=== PATIENT | male | born 1930 | race Caucasian/White ===

== ENCOUNTER 2017-10-06 08:33 | Emergency (ER) | payer OTHER, MEDICARE ==
[~2017-10-06 08:33] MED LIST: ACIDOPHILUS1 EACH PO; AMARYL1 MG PO; ASPIR 8181 MG PO; ASPIRIN EC81 M1 PO; CARISOPRODOL250 MG PO; CIPRO 500MG TA500 MG PO; ELIQUIS5 M1 PO; FLAG500 PO; FLAGYL250 M1 PO; FLAGYL500 MG PO; FLORASTOR250 M1 PO; GLIMEPIRIDE1 M1 PO; GLYBURIDE2.5 MG PO; GOLYTELY1 PDR PO; LASIX20 M1 PO; LEVSIN-SL0.125 MG SL; MIRALAX17 GM PO; MORPHINE SULFAT30 M3 PO; NEOMYCIN-POLYMY10 ML AD; OXYCODONE HCL E10 MG PO; OXYCODONE HCL E20 MG; OXYCODONE HCL20 M2 PO; PERCOCET 5-3251 EACH PO; POTASSIUM CHLO20 ME4 PO; PRILOSEC OTC20 MG PO; SENNA CON/DOCUS1 TAB PO; SIMVASTATIN20 M2 PO; SIMVASTATIN20 MG PO; SOMA250 M1 PO; SUPREP BOWEL P177 ML PO; ULTRAM50 M1 PO; VANCOCIN HCL125 MG PO; VANCOMYCIN HCL125 MG PO; VANCOMYCIN HCL5 G1 PO; ZOFRAN ODT4 M1 SL; ZOFRAN ODT4 MG PO; ZOFRAN4 M2 PO; ZOHYDRO ER30 M1 PO
[2017-10-06 08:39] VITALS: BP 142/78
--- NOTE | 2017-10-06 08:58 | ED SKIN/ALLERGY COMPLAINT ---
History of Present Illness General Chief Complaint: Skin Rash/ Abcess Stated Complaint: RASH WITH SWELLING TO RT HAND Source: patient, family Exam Limitations: no limitations Vital Signs & Intake/Output Vital Signs & Intake/Output Vital Signs Date Time Temp Pulse Resp B/P B/P Pulse O2 O2 Flow FiO2 Mean Ox Delivery Rate 10/06 0839 97.5 88 20 142/78 Allergies Coded Allergies: penicillin V (HIVES 11/27/16) metoclopramide (Severe, DIARRHEA 11/27/16) Reconcile Medications Aspirin (Ecotrin*) 81 MG TABLET.DR 1 TAB PO DAILY HEART/BLOOD (Reported) Carisoprodol (SOMA) 250 MG TABLET 1 TAB PO BID PAIN (Reported) Glimepiride 1 MG TABLET 1 TAB PO DAILY DM (Reported) Morphine Sulfate (Morphine Sulfate ER) 30 MG TABLET.ER 1 TAB PO BID PAIN ( Reported) Ondansetron HCl (Zofran) 4 MG TABLET 1 TAB PO Q6 PRN NAUSEA/VOMITING Oxycodone HCl (Oxycodone HCl ER) 10 MG TAB.ER.12H 1 TAB PO Q6 PAIN (Reported) Potassium Chloride 20 MEQ TABLET.ER 1 TAB PO DAILY Hypokalemia Saccharomyces Boulardii (Florastor) 250 MG CAPSULE 1 TAB PO BID DIARRHOEA Simvastatin (Simvastatin*) 20 MG TABLET 1 TAB PO QPM CHOLESTEROL (Reported) Triage Note: PER PT SWELLING TO RT HAND FROM POISON GEOVANNI. STARTED 2 WEEKS AGO BUT SWELLING SINCE YESTERDAY. SL SWELLING NOTED NO WARMTH Triage Nurses Notes Reviewed? yes HPI: Patient presents for evaluation of right hand swelling that began over the past day or 2. Patient states he has had a case of poison geovanni over the right dorsal wrist for the past 2 weeks that seems to be getting better. He was concerned that he might be developing a secondary skin infection given the swelling of the right hand. The patient denies any associated fever, cold symptoms or injury. The swelling has been constant, described as mild to moderate. Nothing seems to make the swelling improve. Past History Travel History Traveled to [place] past 21 day No Medical History Any Pertinent Medical History? 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 History of MRSA: No History of VRE: No History of CDIFF: Yes Influenza Vaccine: 01/15/17 Surgical History Surgical History: appendectomy, cataract removal (06/2014: cat OU), hernia repair-inguinal, prostatectomy, 05/2006: neurostimulator; mult back surgeries : TURP for BPH; later [facility] with RT/hormonal tx Psychosocial History Who do you live with Spouse Services at Home None What is your primary language Vincentian Tobacco Use: Never used Family History Family History, If Any: BROTHER (Pt unsure as to FHx, but denies FHx of GI Ca, GI disease, or inherited liver disease.). Relation not specified for: No pertinent family history Hx Contributory? No Review of Systems Review of Systems Constitutional: Reports: no symptoms. EENTM: Reports: no symptoms. Respiratory: Reports: no symptoms. Cardiovascular: Reports: no symptoms. GI: Reports: no symptoms. Genitourinary: Reports: no symptoms. Musculoskeletal: Reports: no symptoms. Skin: Reports: see HPI. Neurological/Psychological: Reports: no symptoms. Hematologic/Endocrine: Reports: no symptoms. Immunologic/Allergic: Reports: no symptoms. All Other Systems: Reviewed and Negative Physical Exam Physical Exam General Appearance: see below Comments: Gen.: Well-nourished, well-developed, no acute respiratory distress. Head: Normocephalic, atraumatic. Eyes: Normal inspection bilaterally Ears: Normal inspection bilaterally Nose: Normal inspection Throat/mouth : Moist mucosa Neck: Supple, full range of motion, no goiter Heart: Regular rate and rhythm Lungs: Quiet respirations Back: Normal range of motion Extremities: Right forearm: Pale erythema without vesicles ecchymoses fluctuance or drainage, right hand: Mild diffuse swelling of the dorsum without tenderness erythema or drainage. Neurologic: Cranial nerves grossly intact, speech is clear Skin: warm and dry Psychiatric: Calm, cooperative, no apparent delusions or hallucinations Progress Differential Diagnosis: abscess/cellulitis, allergic reaction, contact dermatitis, shingles, urticaria Plan of Care: See discharge instructions Departure Departure Disposition: HOME OR SELF CARE Condition: Stable Clinical Impression Primary Impression: Peripheral edema Secondary Impressions: Dermatitis due to plants, including poison geovanni, sumac, and oak Referrals: Rudi Hicks MD (PCP/Family) Additional Instructions: Elevate your right hand as discussed. Follow up with your primary care physician if the swelling does not resolve over the next 5-7 days. Return if any concerns or sudden worsening. Thank you for choosing the [facility] Emergency Department for your care. It was a pleasure to serve you today. David Shelton M.D. [facility] Departure Forms: Customer Survey General Discharge Information
== END 2017-10-06 09:19 ==
LOC: ERH 08:33
DX: R60.9 Edema, unspecified (principal); L25.5 Unspecified contact dermatitis due to plants, except food
CPT/HCPCS: 99282

== ENCOUNTER 2017-10-12 22:18 | Inpatient (IN) | payer OTHER, MEDICARE ==
[~2017-10-12] VITALS: Ht 167.6 cm; Wt 63.5 kg
[2017-10-12 22:42] LABS: ABSOLUTE BASOPHIL COUNT 0.1 /CUMM (0.0-0.2); ABSOLUTE EOSINOPHIL COUNT 0 /CUMM (0.0-0.7); ABSOLUTE GRANULOCYTE CT 9.7 /CUMM (1.4-6.5); ABSOLUTE LYMPH COUNT 3.5 /CUMM (1.2-3.4); BASOPHIL % 0.4 % (0.0-2.0); EOSINOPHIL % 0.3 % (0-5); GRANULOCYTE % 67.6 % (42.2-75.2); HEMATOCRIT 38.2 % (42-52); MEAN CORPUSCULAR HGB 32.4 PG (27.0-31.0); MEAN CORPUSCULAR HGB CONC 34.4 G/DL (33.0-37.0); MEAN CORPUSCULAR VOLUME 94.1 FL (80.0-94.0); PLATELET COUNT 101 /CUMM (130-400); RBC DISTRIBUTION WIDTH 14.5 % (11.5-14.5); RED BLOOD CELL CT 4.05 /CUMM (4.70-6.10); WHITE BLOOD CELL COUNT 14.3 /CUMM (4.8-10.8)
--- NOTE | 2017-10-13 01:36 | CT SCAN REPORT ---
EXAMINATION: CT ABDOMEN AND PELVIS WITH CONTRAST CLINICAL INFORMATION: Periumbilical pain. Chills, nausea. History of C. difficile colitis. COMPARISON: February 21, 2017. TECHNIQUE: Contiguous axial thin section helical images of the abdomen and pelvis were performed following the administration of 95 mL of intravenous Optiray 320. The data set was reformatted in the coronal and sagittal planes and reviewed on an independent workstation. DLP: 264 mGy-cm. FINDINGS: The visualized lung bases are clear. The visualized portions of the heart are unremarkable. There is a small hiatal hernia. The liver is of normal size and attenuation without focal lesions nor intrahepatic biliary ductal dilation. A normal gallbladder is identified. There is no wall thickening or discernible pericholecystic fluid. The spleen, pancreas, adrenal glands are unremarkable. Both kidneys are of normal size and attenuation without hydronephrosis or nephrolithiasis. There is stable bilateral renal cysts. Following the administration of IV contrast, prompt symmetric nephrograms are displayed. There is no abdominal free fluid. There is neither mesenteric nor retroperitoneal lymphadenopathy. There is diffuse wall thickening to the sigmoid colon. There is adjacent fat stranding. There are no fluid collections. Otherwise, unremarkable unopacified loops of small and large bowel are identified. There is no pelvic free fluid. The urinary bladder is unremarkable. There is neither pelvic nor inguinal lymphadenopathy. There is a large fat-containing left inguinal hernia. Bone windows: Neither sclerotic nor lytic bone lesions are identified. The osseous structures are stable. There is a stable defect to the left innominate bone. IMPRESSION: Diffuse sigmoid colon wall thickening indicative of colitis. No drainable fluid collections. Large fat-containing left inguinal hernia.
--- NOTE | 2017-10-13 01:41 | ED GI/GU/ABDOMINAL COMPLAINT ---
History of Present Illness General Chief Complaint: Abdominal Pain/Flank Pain Stated Complaint: AB PAIN +DIARHEA Source: patient, family, old records Exam Limitations: no limitations Vital Signs & Intake/Output Vital Signs & Intake/Output Vital Signs Date Time Temp Pulse Resp B/P B/P Pulse O2 O2 Flow FiO2 Mean Ox Delivery Rate 10/13 0053 99.1 103 20 159/86 95 Room Air 10/12 2228 99.9 105 20 133/79 95 Room Air ED Intake and Output 10/13 0000 10/12 1200 Intake Total Output Total Balance Patient 140 lb Weight Allergies Coded Allergies: penicillin V (HIVES 11/27/16) metoclopramide (Severe, DIARRHEA 11/27/16) Reconcile Medications Aspirin (Ecotrin*) 81 MG TABLET.DR 1 TAB PO DAILY HEART/BLOOD (Reported) Carisoprodol (SOMA) 250 MG TABLET 1 TAB PO BID PAIN (Reported) Glimepiride 1 MG TABLET 1 TAB PO DAILY DM (Reported) Morphine Sulfate (Morphine Sulfate ER) 30 MG TABLET.ER 1 TAB PO BID PAIN ( Reported) Ondansetron HCl (Zofran) 4 MG TABLET 1 TAB PO Q6 PRN NAUSEA/VOMITING Oxycodone HCl (Oxycodone HCl ER) 10 MG TAB.ER.12H 1 TAB PO Q6 PAIN (Reported) Potassium Chloride 20 MEQ TABLET.ER 1 TAB PO DAILY Hypokalemia Saccharomyces Boulardii (Florastor) 250 MG CAPSULE 1 TAB PO BID DIARRHOEA Simvastatin (Simvastatin*) 20 MG TABLET 1 TAB PO QPM CHOLESTEROL (Reported) Triage Note: PT FROM HOME WITH C/O DIARRHEA AND "PAINS IN MY STOMACH". PT REPORTS IT BEGAN 2 DAYS AGO WITH ABD PAIN AND TODAY THE DIARRHEA STARTED. PT DENIES ANY BLOOD IN STOOL. Triage Nurses Notes Reviewed? yes Onset: 2 days Duration: day(s):, constant, continues in ED Timing: recent history Quality/Severity: aching, moderate, severe Location: periumbilical Radiation: no radiation Activities at Onset: rest Prior Abdominal Problems: similar symptoms Past Sexual History: Unobtainable at this time Modifying Factors: Worsens With: eating, palpation. Associated Symptoms: abdominal pain, diarrhea, loss of appetite, neck pain HPI: 2 days prior to admission patient complains anorexia and nausea. 1 day prior to admission patient developed frequent loose watery stool and later moderate to severe periumbilical discomfort nonradiating similar to previous C. difficile colitis. He reports his temperature has been going up and down. He denies chills vomiting chest pain cough shortness of breath headache dysuria rash bleeding recent antibiotic use. Past History Travel History Traveled to [place] past 21 day No Medical History Any Pertinent Medical History? 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 History of MRSA: No History of VRE: No History of CDIFF: Yes Surgical History Surgical History: appendectomy, cataract removal (06/2014: cat OU), hernia repair-inguinal, prostatectomy, 05/2006: neurostimulator; mult back surgeries : TURP for BPH; later txd for prostate Ca at [facility] with RT/hormonal tx Psychosocial History Who do you live with Spouse Services at Home None What is your primary language Swazi Tobacco Use: Never used ETOH Use: denies use Illicit Drug Use: denies illicit drug use Family History Family History, If Any: BROTHER (Pt unsure as to FHx, but denies FHx of GI Ca, GI disease, or inherited liver disease.). Relation not specified for: No pertinent family history Hx Contributory? No Review of Systems Review of Systems Constitutional: Reports: no symptoms. EENTM: Reports: no symptoms. Respiratory: Reports: no symptoms. Cardiovascular: Reports: no symptoms. GI: Reports: see HPI, abdominal pain, diarrhea, nausea. Genitourinary: Reports: no symptoms. Musculoskeletal: Reports: no symptoms. Skin: Reports: no symptoms. Neurological/Psychological: Reports: no symptoms. Hematologic/Endocrine: Reports: no symptoms. Immunologic/Allergic: Reports: no symptoms. All Other Systems: Reviewed and Negative Physical Exam Physical Exam General Appearance: well developed/nourished, alert, awake, anxious, moderate distress Head: atraumatic, normal appearance Eyes: Bilateral: normal appearance, PERRL, EOMI, normal inspection. Ears, Nose, Throat, Mouth: hearing grossly normal, dry mucous membranes Neck: normal inspection, supple, full range of motion, normal alignment Respiratory: normal breath sounds, chest non-tender, no respiratory distress, quiet respiration, lungs clear Cardiovascular: regular rate/rhythm, normal peripheral pulses, norml femoral pulses equa Peripheral Pulses: 4+ carotid (R), 4+ carotid (L) Gastrointestinal: soft, no organomegaly, abnormal bowel sounds, tenderness (mild periumbilical) Male Genitals: normal genitalia Back: normal inspection, normal range of motion Extremities: normal range of motion, no ligament instability Neurologic/Psych: no motor/sensory deficits, awake, alert, oriented x 3, normal gait, normal mood/affect, spooler rubber strand II-XII nml as tested Skin: intact, normal color, warm/dry Core Measures ACS in differential dx? No Sepsis Present: No Sepsis Focused Exam Completed? No Progress Differential Diagnosis: biliary colic, diverticulitis, gastritis, pancreatitis Plan of Care: Orders Procedure Date/time Status Full Liquid Diet 10/13 B Active Weight 10/13 0406 Active Vital Signs 10/13 0406 Active Teach/Educate 10/13 0406 Active Pain Treatment and Response 10/13 0406 Active Nutritional Intake, Monitor 10/13 0406 Active Isolation 10/13 0406 Active Intake & Output 10/13 0406 Active Patient Care Conference 10/13 0406 Active Activity/Ambulation 10/13 0406 Active Hemoccult 10/13 0327 Active OXYGEN SETUP (GEN) 10/13 0318 Active Saline Lock 10/13 0318 Active Admit to inpatient 10/13 0318 Active Vital Signs 10/13 0318 Active Activity/Ambulation 10/13 0318 Active Code Status 10/13 0318 Active Precautions 10/13 0307 Active Patient Data 10/13 0235 Active STOOL: R/O YERSINIA 10/13 0215 Active STOOL:R/O VIBRIO 10/13 0215 Active CULTURE,STOOL 10/13 0215 Active C.DIFFICILE 10/13 0215 Active Intake & Output 10/13 0103 Active TROPONIN LEVEL 10/12 2231 Complete COMPREHENSIVE METABOLIC PANEL 10/12 2231 Complete CBC WITHOUT DIFFERENTIAL 10/12 223 Complete EKG 10/12 2220 Active Current Medications Sig/Karson Start time Last Medication Dose Stop Time Status Admin Metronidazole 500 MG ONCE ONE 10/13 0215 CAN (Flagyl) 10/13 0314 N/A 1 UNIT (No Carrier) Laboratory Tests 10/12/17 2235: Anion Gap 9, Estimated GFR > 60, BUN/Creatinine Ratio 12.9, Glucose 228 H, Calcium 8.8, Total Bilirubin 0.9, AST 21, ALT 32, Alkaline Phosphatase 48, Troponin I 0.03, Total Protein 6.0 L, Albumin 3.5, Globulin 2.5, Albumin/ Globulin Ratio 1.4, CBC w Diff NO MAN DIFF REQ, RBC 4.05 L, MCV 94.1 H, MCH 32.4 H, MCHC 34.4, RDW 14.5, MPV 7.0 L, Gran % 67.6, Lymphocytes % 24.5, Monocytes % 7.2, Eosinophils % 0.3, Basophils % 0.4, Absolute Granulocytes 9.7 H, Absolute Lymphocytes 3.5 H, Absolute Monocytes 1.0 H, Absolute Eosinophils 0, Absolute Basophils 0.1 Microbiology 10/14 327 STOOL: Clostridium difficile Toxin A & B - RECD 10/14 327 STOOL: Vibrio Culture - RECD 10/14 327 STOOL: Yersinia Culture - RECD 10/14 327 STOOL: Stool Culture - RECD Diagnostic Imaging: Viewed by Me: CT Scan. Discussed w/RAD: CT Scan. Radiology Impression: Diffuse sigmoid colon wall thickening indicative of colitis. No drainable fluid collections. Large fat-containing left inguinal hernia. Initial ED EKG: normal axis, normal intervals, normal p-waves, normal QRS complex, normal sinus rhythm, no ST T wave changes Prior EKG: unchanged Rhythm Strip: normal sinus rhythm Departure Departure Disposition: STILL A PATIENT Condition: Stable Clinical Impression Primary Impression: Colitis Secondary Impressions: History of Clostridium difficile colitis, Hyponatremia, Leukocytosis Referrals: Hicks Rudi KELLY (PCP/Family) Departure Forms: Customer Survey General Discharge Information Admission Note Spoke With: Daysi Coy MD Documentation of Exam: Documentation of any treatments & extenuating circumstances including Concerns Regarding Discharge (functional status, medication knowledge or non-compliance, living conditions, etc.) that warrant an admission rather than observation: IV hydration stool studies medication adjustment antibiotics for colitis GI evaluation advance diet continuing care discharge planning
--- NOTE | 2017-10-13 02:59 | History & Physical ---
Jessenia Pedersen MD 10/13/17 0258: General Information and HPI MD Statement: I have seen and personally examined LIONEL KING JR and documented this H& P. The patient is a 87 year old M who presented with a patient stated chief complaint of abdominal pain and bloody diarrhea Source of Information: patient, old records Exam Limitations: no limitations History of Present Illness: Patient is an 87-year-old male with a past medical history significant for hypertension, hyperlipidemia, chronic back pain secondary to spinal stenosis status post left abdominal wall nerve stimulator, history of C. difficile colitis, diabetes, history of DVT, prostate cancer status post TURP, radiation, hormonal therapy, appendectomy, that comes in for complaints of 2 days abdominal pain and 1 day of bloody diarrhea. The patient states that his abdominal pain is nonradiating and has been continuous with episodes of severe abdominal pain. He denies any nausea or vomiting. He states that he had a fever 2 days ago with diaphoresis and chills up to 102. The patient has had 4 episodes of diarrhea today, bloody, with a worse odor than normal. The patient states that after he has diarrhea, the pain lessens. He denies any black stools. The patient hasn't eaten for 2 days secondary to lack of appetite. The patient was last admitted in February for similar complaints. He cannot recall if he has had issues with diarrhea since that admission. He denies any recent antibiotic use, sick contacts, travel. 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 His PCP is Dr. Hicks. The patient denies any dysuria, headache, dizziness, chest pain, shortness of breath, cough. He notes chronic pain on the balls of his feet, unsure of the cause and has had no workup for that. The patient lives with his and is independent in his activities of daily living. He ambulates independently, walks about 2 miles a day. He denies alcohol, drugs, smoking. Allergies/Medications Allergies: Coded Allergies: penicillin V (HIVES 11/27/16) metoclopramide (Severe, DIARRHEA 11/27/16) Home Med list Aspirin (Ecotrin*) 81 MG TABLET.DR 1 TAB PO DAILY HEART/BLOOD (Reported) Carisoprodol (SOMA) 250 MG TABLET 1 TAB PO BID PAIN (Reported) Glimepiride 1 MG TABLET 1 TAB PO DAILY DM (Reported) Morphine Sulfate (Morphine Sulfate ER) 30 MG TABLET.ER 1 TAB PO BID PAIN ( Reported) Ondansetron HCl (Zofran) 4 MG TABLET 1 TAB PO Q6 PRN NAUSEA/VOMITING Oxycodone HCl (Oxycodone HCl ER) 10 MG TAB.ER.12H 1 TAB PO Q6 PAIN (Reported) Potassium Chloride 20 MEQ TABLET.ER 1 TAB PO DAILY Hypokalemia Saccharomyces Boulardii (Florastor) 250 MG CAPSULE 1 TAB PO BID DIARRHOEA Simvastatin (Simvastatin*) 20 MG TABLET 1 TAB PO QPM CHOLESTEROL (Reported) Compliance With Home Meds: GOOD Past History Travel History Traveled to [place] past 21 day No Medical History Neurological: torticollis EENT: cataracts Cardiovascular: hypertension, hyperlipidemia, IRBBB Respiratory: NONE Gastrointestinal: L ABD WALL STIMULATOR; 09/2013- colonoscopy- stricture at 15cm bx negative + C.DIFF Hx C.diff HH L femoral hernia Renal: L renal cyst Musculoskeletal: chronic back pain, disk herniation, degen joint disease, spinal stenosis, back pain with nerve stimulator implant Psychiatric: NONE Endocrine: NIDDM Blood Disorders: DVT, thrombocytopenia Cancer(s): prostate cancer (prev TURP; RT/hormonal tx) 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 Psychosocial History Who Do You Live With? spouse Services at Home: None Primary Language: Luxembourgish ETOH Use: denies use Illicit Drug Use: denies illicit drug use Living Will? no Power of African Studies Professor/HCP? no Functional Ability ADLs Independent: dressing, eating, toileting, bathing. Ambulation: independent IADLs Independent: shopping, housework, finances, food prep, telephone, transportation. Needs Assist: medication admin. Review of Systems Review of Systems Constitutional: Reports: chills, diaphoresis, fever. EENTM: Reports: no symptoms. Cardiovascular: Reports: no symptoms. Respiratory: Reports: no symptoms. GI: Reports: abdominal pain, bloating, diarrhea, bloody stool, changes in stool. Genitourinary: Reports: no symptoms. Musculoskeletal: Reports: back pain. Skin: Reports: no symptoms. Neurological/Psychological: Reports: no symptoms. Hematologic/Endocrine: Reports: no symptoms. Immunologic/Allergic: Reports: no symptoms. Exam & Diagnostic Data Last 24 Hrs of Vital Signs/I&O Vital Signs Date Time Temp Pulse Resp B/P B/P Pulse O2 O2 Flow FiO2 Mean Ox Delivery Rate 10/13 0053 99.1 103 20 159/86 95 Room Air 10/12 2228 99.9 105 20 133/79 95 Room Air Intake & Output 10/13 0800 10/13 0000 10/12 1600 Intake Total Output Total Balance Patient 140 lb Weight Physical Exam General Appearance Alert, Oriented X3, Cooperative, No Acute Distress Skin No Rashes, No Breakdown Skin Temp/Moisture Exam: Warm/Dry Sepsis Skin Exam (color): Normal for Ethnicity HEENT Atraumatic, PERRLA, EOMI, Mucous Membr. moist/pink Cardiovascular Regular Rate, Normal S1, Normal S2, No Murmurs Lungs Clear to Auscultation, Normal Air Movement Abdomen Normal Bowel Sounds, Soft, No Hepatospenomegaly, No Masses, patient has rebound tenderness throughout Neurological Normal Speech Extremities No Clubbing, No Cyanosis, Normal Pulses, No Tenderness/Swelling, 1+ pitting edema bilaterally Vascular Normal Pulses, Pulses Symmetrical Last 24 Hrs of Labs/Duy: Laboratory Tests 10/12/175: Anion Gap 9, Estimated GFR > 60, BUN/Creatinine Ratio 12.9, Glucose 228 H, Calcium 8.8, Total Bilirubin 0.9, AST 21, ALT 32, Alkaline Phosphatase 48, Troponin I 0.03, Total Protein 6.0 L, Albumin 3.5, Globulin 2.5, Albumin/ Globulin Ratio 1.4, CBC w Diff NO MAN DIFF REQ, RBC 4.05 L, MCV 94.1 H, MCH 32.4 H, MCHC 34.4, RDW 14.5, MPV 7.0 L, Gran % 67.6, Lymphocytes % 24.5, Monocytes % 7.2, Eosinophils % 0.3, Basophils % 0.4, Absolute Granulocytes 9.7 H, Absolute Lymphocytes 3.5 H, Absolute Monocytes 1.0 H, Absolute Eosinophils 0, Absolute Basophils 0.1 Microbiology 10/14 327 STOOL: Clostridium difficile Toxin A & B - RECD 10/14 327 STOOL: Vibrio Culture - RECD 10/14 327 STOOL: Yersinia Culture - RECD 10/14 327 STOOL: Stool Culture - RECD Assessment/Plan Assessment: Patient is an 87-year-old male with a past medical history significant for hypertension, hyperlipidemia, chronic back pain secondary to spinal stenosis status post left abdominal wall nerve stimulator, history of C. difficile colitis, diabetes, history of DVT, prostate cancer status post TURP, radiation, hormonal therapy, appendectomy, that comes in for complaints of 2 days abdominal pain and 1 day of bloody diarrhea. Patient was seen last in February for similar complaints and before that was seen in January 2016 for C. difficile. On his last stay with us his C. difficile was found to be PCR positive. Patient was seen by infectious disease and was initially put on IV metronidazole which was transitioned to by mouth prior to discharge for a total 14 days of antibiotics. He has no recent antibiotic use, no sick contacts, no travel, no new foods. Patient had flexible sigmoidoscopy in 2014 after he presented with signs of a large bowel obstruction and imaging suggesting a transition point in the region of the previously identified stricture. Findings of fecal impaction were found without an obvious stricture appreciated. In the ED, temperature 99.9, heart rate 105, respiratory rate 20, blood pressure 133/79, 95% oxygen saturation on room air. EKG showed a rate of 99 with multiple PACs and a QTC of 457, evidence of incomplete right bundle branch block. Labs showed WBC 14.3, hemoglobin 13 which is his baseline, platelets 101 which is his baseline, sodium 129, potassium 4.4, normal LFTs, calcium, troponins. CT of the abdomen showed colitis with no drainable fluid collection and a large fat-containing left inguinal hernia. In the ED he received vancomycin by mouth, 1 L fluids, Zofran, morphine 4 mg 1. 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 As stated previously, patient has not had any recent antibiotics or as recently admitted but recurrence is likely as patient has had this issue twice before. Patient has questionable hypertension but does not have coronary artery disease or any other type of peripheral vascular disease which would point to ischemic colitis. He has no established diagnosis of Crohn's disease or ulcerative colitis. Patient has allergy to penicillin and metoclopramide but has not taken these medications so allergic reaction colitis is unlikely as well. Patient had flexible sigmoidoscopy in 2014, no sigmoid or rectal lesions found. -Hyponatremia -Questionable history of hypertension, no record of current medications -Diabetes -Back pain with nerve stimulator -History prostate cancer status post TURP, radiation, hormonal therapy Plan -Admit patient to general medical floors for evaluation and treatment -The patient on vancomycin 125 mg every 6 by mouth -Monitor CBC for drop in hemoglobin as patient is bleeding rectally -Guaiac stool -Please place a consult with infectious disease in the morning -Place patient on full liquid diet with advance as tolerated -Follow up C. difficile toxin assay, vibrio and Yersinia, stool culture -Normal saline at a rate of 50 as patient does have lower extremity edema with no recent echocardiogram. -Follow up BEP for hyponatremia -Pain control -Please confirm medications in the morning as patient's had taken the medication list and patient does not recall his medications Full liquid diet DVT prophylaxis with just Alps Full code As Ranked By This Provider Problem List: 1. History of Clostridium difficile colitis 2. Colitis Core Measures/Misc (01/01) Acute Coronary Syndrome ACS Diagnosis: No Congestive Heart Failure Congestive Heart Failure Diagnosis No Cerebrovascular Accident CVA/TIA Diagnosis: No VTE (View Protocol) VTE Risk Factors Acute Medical Illness No Mechanical VTE Prophylaxis d/t N/A MechProphylax Ordered No VTE Pharm Prophylaxis d/t Medical Contraindication Sepsis (View protocol) Sepsis Present: No If YES complete Sepsis Event Note If YES complete Sepsis Event Note Екатерина Pringle 10/13/17 0344: Core Measures/Misc (01/01) Sepsis (View protocol) If YES complete Sepsis Event Note If YES complete Sepsis Event Note Resident Review Statement Resident Statement: 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 Patient states that 2 days ago, he developed a temperature of 102 at home, and experienced some chills. Then this morning, patient reports that he had profuse diarrhea. He reports to having 4 bowel movements today and states that his stools are more foul-smelling.. The color of his stool is reddish. Of note from his previous discharge summary, it appears that he had bloody diarrhea the last time as well. Patient was recently treated for C. difficile in February 2017. Patient reports of nausea but no vomiting. Fever/chills positive. Labs and vitals as above CT abdomen significant for colitis Assessment and plan Will admit the patient on general medicine floor, start by mouth Vanco 125 mg by mouth every 6 hours, given his recurrent C. difficile, patient might benefit from stool transplant, ID consult in a.m. Gentle IV hydration at 50 mL/h given his diarrhea. Patient also reported of low appetite, however will start him with full liquids for now. Patient has hyponatremia of 129, recheck sodium in morning. Will start patient on fingerstick and low-dose sliding scale. Will recheck CBC to monitor for leukocytosis in am. Patient has a platelet count of 101, will monitor closely. Patient does not have a medication list, and no pharmacy reclaim can be seen. Please confirm CMR in a.m. DVT prophylaxis Alps. Patient is full code. Daysi Coy 10/13/17 0443: Core Measures/Misc (01/01) Sepsis (View protocol) If YES complete Sepsis Event Note If YES complete Sepsis Event Note Attending MD Review Statement Attending Statement Attending MD Statement: examined this patient, discuss w/resident/PA/EMERGENCY ROOM DOCTOR, agreed w/resident/PA/EMERGENCY ROOM DOCTOR, reviewed EMR data (avail), reviewed images, amended to note Attending Assessment/Plan: CC: Abdominal pain and diarrhea PMH: DM, history of DVT, prostate cancer, thrombocytopenia, spinal stenosis and chronic back pain S/P nerve stimulator, HLD, history of C. difficile diarrhea Patient came to ER for 2 day history of abdominal pain, diffuse, nonradiating, mild relief with bowel movement otherwise no aggravating or relieving factor. He started to have diarrhea yesterday had 4-5 watery bowel movements. In color. He endorses fever, chills, decreased appetite. He denies any recent antibiotic use, no different food intake, no travels, no sick contacts other than the symptoms ROS unremarkable. Vitals: Temperature 99.9, pulse 105, RR 20, blood pressure 133/79, saturating 95 % on room air. On exam: A O 3, cooperative, no acute distress, neck supple, JVD normal, no lymphadenopathy, tongue dry and coated, no focal neurological deficit, trace leg edema, no obvious skin rashes or inflammation CVS: S1-S2, RRR. RS: Clear to auscultate bilaterally. Abdomen: Tender more so in left upper and lower quadrant , mild distention, bowel sounds decreased. CT abdomen and pelvis with IV contrast: Diffuse sigmoid colon wall thickening indicative of colitis. No drainable fluid collections. Large fat-containing left inguinal hernia. Assessment and plan 87-year-old male with extensive past medical history as mentioned above presented in ER for 2 day history of abdominal pain and one day history of diarrhea, red in color associated with fever and chills. CT confirms evidence of diffuse colitis in sigmoid colon. He has leukocytosis, hyponatremia, creatinine normal. On examination he appears dehydrated. He has history of recurrent C. difficile infections. This appears to be recurrence of C. difficile again, we'll start empirical treatment with vancomycin, await C. difficile stool. If he is not responding to treatment than other causes of colitis should be considered especially inflammatory given his recurrent symptoms. Last episode was in February 2017, confirmed with PCR. We will get ID involved. Consider outpatient GI follow-up, fecal transplant + Diarrhea suspected C. difficile + Dehydration + Hyponatremia probably secondary to dehydration + History of DM, history of DVT, prostate cancer, thrombocytopenia, spinal stenosis and chronic back pain S/P nerve stimulator, HLD, history of C. difficile diarrhea - Admit to general medicine - Continue IV fluids normal saline - Check urine osmolality, serum osmolality - Continue by mouth vancomycin - Obtain C. difficile stool - Stool cultures - Monitor H&H - Guaiac stool - ID consult - Pain control - Avoid antimotility agent - Sliding scale insulin - Hold Lasix - Confirmed all his medications before starting
--- NOTE | 2017-10-13 04:45 | Admission Certification ---
Admission Certification Certification Statement - As attending physician, I certify that at the time of - admission, based on clinical presentation, severity of - symptoms, need for further diagnostic testing and - therapeutic interventions, and risk of adverse outcomes - without in-hospital treatment, in my clinical assessment, - this patient requires an acute hospital stay for a minimum - of two nights or longer. I have also considered psychsocial - factors such as support system, advanced age, financial - issues, cognitive issues, and failed out-patient treatments, - past re-admission history, safety of patient, and lack of - compliance as applicable. Specific rationale supporting this admission is: Diarrhea, suspected C. difficile, dehydration
[2017-10-13 06:15] VITALS: BP 146/70
[2017-10-13 08:49] LABS: ABSOLUTE BASOPHIL COUNT 0.1 /CUMM (0.0-0.2); ABSOLUTE EOSINOPHIL COUNT 0 /CUMM (0.0-0.7); ABSOLUTE GRANULOCYTE CT 11.2 /CUMM (1.4-6.5); ABSOLUTE LYMPH COUNT 2.7 /CUMM (1.2-3.4); ABSOLUTE MONOCYTE COUNT 0.9 /CUMM (0.10-0.60); BASOPHIL % 0.5 % (0.0-2.0); EOSINOPHIL % 0.1 % (0-5); GRANULOCYTE % 75.5 % (42.2-75.2); MEAN CORPUSCULAR HGB CONC 33.9 G/DL (33.0-37.0); MEAN CORPUSCULAR VOLUME 94.5 FL (80.0-94.0); MEAN PLATELET VOLUME 7.3 FL (7.4-10.4); RBC DISTRIBUTION WIDTH 14.4 % (11.5-14.5); RED BLOOD CELL CT 4.02 /CUMM (4.70-6.10); WHITE BLOOD CELL COUNT 14.8 /CUMM (4.8-10.8)
--- NOTE | 2017-10-13 10:23 | PN- Att Addend ---
Attending Addendum Attending Brief Note 87-year-old male past medical history of diabetes, prostate CA, chronic thrombocytopenia and previous C. difficile colitis. His last documented episode with us is February 2017 where the PCR was positive and he was treated. He is here with complaints of abdominal discomfort, diarrhea, had leukocytosis with a white count of 14,000 and a low-grade temp of 99.9. His CT showed sigmoid colitis and he is being empirically treated for C. difficile with a stool C. difficile pending. At this point will continue the oral Vanco, will call for a formal ID consult as the question is if this is his second episode does he need the pulse tapering dose of Vanco. Will advance the diet, if he is tolerating it well stop the fluids. And will follow-up.
[2017-10-13 10:41] LABS: PLATELET COUNT 100 /CUMM (130-400)
--- NOTE | 2017-10-13 12:41 | Cons- Infect Disease ---
General Information and HPI Consulting Request Date of Consult: 10/13/17 Requested By: Tam KELLY,Claire Reason for Consult: Rule out C. 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 difficile, treated 19 months prior to admission with a tapering course of Vancomycin, last hospitalized 7 months prior to admission with a recurrent episode, in the absence of antibiotics, with a negative toxin test but a positive PCR, treated with a 2 week course of Flagyl with resolution of his diarrhea, admitted early this morning after presenting to the emergency room with 2 days of abdominal pain and 1 day of diarrhea with nausea and anorexia. On admission he was afebrile. Laboratory data revealed a white blood cell count of 14,000, platelets 101,000, BUN/creatinine 9 and 0.7, sodium 129, with normal liver enzymes. CT the abdomen and pelvis revealed diffuse sigmoid colon wall thickening, indicative of colitis. He was begun on p.o. Vancomycin. He has remained afebrile but has continued to have diarrhea and abdominal pain overnight and this am. He denies any recent antibiotic use. Allergies/Medications Allergies: Coded Allergies: penicillin V (HIVES 11/27/16) metoclopramide (Severe, DIARRHEA 11/27/16) Home Med List: Aspirin (Ecotrin*) 81 MG TABLET.DR 1 TAB PO DAILY HEART/BLOOD (Reported) Carisoprodol (SOMA) 250 MG TABLET 1 TAB PO BID PAIN (Reported) Glimepiride 1 MG TABLET 1 TAB PO DAILY DM (Reported) Morphine Sulfate (Morphine Sulfate ER) 30 MG TABLET.ER 1 TAB PO BID PAIN ( Reported) Ondansetron HCl (Zofran) 4 MG TABLET 1 TAB PO Q6 PRN NAUSEA/VOMITING Oxycodone HCl (Oxycodone HCl ER) 10 MG TAB.ER.12H 1 TAB PO Q6 PAIN (Reported) Potassium Chloride 20 MEQ TABLET.ER 1 TAB PO DAILY Hypokalemia Saccharomyces Boulardii (Florastor) 250 MG CAPSULE 1 TAB PO BID DIARRHOEA Simvastatin (Simvastatin*) 20 MG TABLET 1 TAB PO QPM CHOLESTEROL (Reported) Past History Travel History Traveled to [place] past 21 day No Medical History Blood Transfusion Hx: No Neurological: torticollis EENT: cataracts Cardiovascular: hypertension, hyperlipidemia, IRBBB Respiratory: NONE Gastrointestinal: hiatal hernia, 09/2013- colonoscopy- stricture at 15cm bx negative + C.DIFF L femoral hernia Renal: L renal cyst Musculoskeletal: chronic back pain, disk herniation, degen joint disease, spinal stenosis Psychiatric: NONE Endocrine: NIDDM Blood Disorders: DVT, thrombocytopenia Cancer(s): prostate cancer (RT/hormonal [place]) 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 Relation not specified for: No pertinent family history Psychosocial History Where Do You Live? Home Who Do You Live With? spouse Services at Home: None Primary Language: Tristanian Smoking Status: Never Smoked ETOH Use: denies use Illicit Drug Use: denies illicit drug use Living Will? no Power of Hog Buyer/HCP? no Functional Ability ADLs Independent: dressing, eating, toileting, bathing. Ambulation: independent IADLs Independent: shopping, housework, finances, food prep, telephone, transportation. Needs Assist: medication admin. Review of Systems Review of Systems All Other Systems: Reviewed and Negative Exam & Diagnostic Data Last 24 Hrs of Vital Signs/I&O Vital Signs Date Time Temp Pulse Resp B/P B/P Pulse O2 O2 Flow FiO2 Mean Ox Delivery Rate 10/13 0615 98.5 88 20 146/70 95 Room Air 10/13 0053 99.1 103 20 159/86 95 Room Air 10/12 2228 99.9 105 20 133/79 95 Room Air Intake & Output 10/13 1600 10/13 0800 10/13 0000 Intake Total Output Total Balance Patient 140 lb 140 lb Weight Weight Reported by Patient Measurement Method Physical Exam Other Physical Findings: He is awake and alert, hard of hearing, but in no acute distress. He is afebrile. Skin reveals no rash. HEENT exam is negative. Neck is supple with no adenopathy. Lungs are clear. Heart regular rhythm with no murmur. Abdomen is mildly distended, tender to palpation, particularly in the periumbilical area , with no guarding or rebound, with positive bowel sounds; neurostimulator pocket in the left lower quadrant with no overlying inflammation. Back no CVA tenderness. Extremities no cyanosis, clubbing or edema. Neuro is without focality. Last 24 Hours of Lab Results: Laboratory Tests 10/13 10/12 0707 2235 Chemistry Sodium (137 - 145 mmol/L) 131 L 129 L Potassium (3.5 - 5.1 mmol/L) 3.8 4.4 Chloride (98 - 107 mmol/L) 94 L 91 L Carbon Dioxide (22 - 30 mmol/L) 25 29 Anion Gap (5 - 16) 12 9 BUN (9 - 20 mg/dL) 8 L 9 Creatinine (0.7 - 1.2 mg/dL) 0.6 L 0.7 Estimated GFR (>60 ml/min) > 60 > 60 BUN/Creatinine Ratio (7 - 25 %) 13.3 12.9 Glucose (65 - 99 mg/dL) 228 H Serum Osmolality (285 - 295 MOSM/KG) 277 L Calcium (8.4 - 10.2 mg/dL) 8.8 Total Bilirubin (0.2 - 1.3 mg/dL) 0.9 AST (17 - 59 U/L) 21 ALT (21 - 72 U/L) 32 Alkaline Phosphatase (< 127 U/L) 48 Troponin I (<0.11 ng/ml) 0.03 Total Protein (6.3 - 8.2 g/dL) 6.0 L Albumin (3.5 - 5.0 g/dL) 3.5 Globulin (1.9 - 4.2 gm/dL) 2.5 Albumin/Globulin Ratio (1.1 - 2.2 %) 1.4 Hematology CBC w Diff MAN DIFF ORDERED NO MAN DIFF REQ WBC (4.8 - 10.8 /CUMM) 14.8 H 14.3 H RBC (4.70 - 6.10 /CUMM) 4.02 L 4.05 L Hgb (14.0 - 18.0 G/DL) 12.9 L 13.1 L Hct (42 - 52 %) 38.0 L 38.2 L MCV (80.0 - 94.0 FL) 94.5 H 94.1 H MCH (27.0 - 31.0 PG) 32.0 H 32.4 H MCHC (33.0 - 37.0 G/DL) 33.9 34.4 RDW (11.5 - 14.5 %) 14.4 14.5 Plt Count (130 - 400 /CUMM) 100 L 101 L MPV (7.4 - 10.4 FL) 7.3 L 7.0 L Gran % (42.2 - 75.2 %) 75.5 H 67.6 Lymphocytes % (20.5 - 51.1 %) 17.9 L 24.5 Monocytes % (1.7 - 9.3 %) 6.0 7.2 Eosinophils % (0 - 5 %) 0.1 0.3 Basophils % (0.0 - 2.0 %) 0.5 0.4 Absolute Granulocytes (1.4 - 6.5 /CUMM) 11.2 H 9.7 H Segmented Neutrophils (42.2 - 75.2 %) 70 Band Neutrophils (0.0 - 5.0 %) 9 H Absolute Lymphocytes (1.2 - 3.4 /CUMM) 2.7 3.5 H Lymphocytes (20.5 - 51.1 %) 16 L Monocytes (1.7 - 9.3 %) 5 Absolute Monocytes (0.10 - 0.60 /CUMM) 0.9 H 1.0 H Absolute Eosinophils (0.0 - 0.7 /CUMM) 0 0 Absolute Basophils (0.0 - 0.2 /CUMM) 0.1 0.1 Normocytic RBCs VERIFIED Normochromic RBCs VERIFIED Last 24 Hours of Duy Results: Blood culture 1 October 13 pending Stool C. difficile and culture October 13 pending Diagnostic Data Recent Imaging Findings: CT of the abdomen and pelvis October 13 reveals diffuse sigmoid colon wall thickening indicative of colitis Assessment/Plan Assessment/Plan Impression: This is an 87-year-old man with a history of chronic abdominal pain in the past and recurrent C. difficile, not always associated with antibiotics, last treated 7 months prior to admission, at which time his C. difficile toxin was negative but his PCR was positive, admitted early this morning with 2 days of abdominal pain and 1 day of diarrhea with nausea and anorexia, found to be afebrile with a leukocytosis and with a CT of the abdomen and pelvis revealing diffuse sigmoid colon wall thickening, indicative of colitis. His clinical picture is consistent with C. difficile colitis. His white blood cell count is close to 15,000, suggesting this is a severe presentation. He does not report any recent antibiotic use, but this should be verified. Of interest his previous episodes have not always been associated with antibiotics, raising concern in the past for an underlying process, with a sigmoidoscopy performed nearly 3 years prior to admission negative. Of note several of his episodes of C. difficile have been diagnosed with PCR as the toxin test was negative, likely secondary to its lower sensitivity. Other possible causes of colitis, including ischemic colitis, other infectious agents and inflammatory bowel disease, will need to be considered if his C. difficile toxin and PCR are negative. Suggestion: 1. Obtain history from his primary care physician regarding any recent antibiotic use 2. Follow-up stool C. difficile toxin test 3. Stool for C. difficile PCR if the toxin test is negative 4. Evaluation for other causes of colitis, as noted above, if both the toxin test and PCR are negative 5. Continue Vancomycin 125 mg p.o. every 6 hours pending above Consult Acknowledgment - Thank you for your consult request.
[2017-10-13] MEDS ORDERED: OXYCODONE HCL10 M2 PO (13:11)
[2017-10-13] MEDS ORDERED: SOMA250 M1 PO (13:18)
[2017-10-13 15:10] VITALS: BP 130/70
[2017-10-13] MEDS ORDERED: VANCOMYCIN HCL5 G1 PO (15:26)
--- NOTE | 2017-10-13 16:58 | Discharge Summary ---
Hospital Course Allergies: Coded Allergies: penicillin V (HIVES 11/27/16) metoclopramide (Severe, DIARRHEA 11/27/16) Discharge Instructions Medications at Discharge Discharge Medications: Continue taking these medications: Aspirin (Ecotrin*) 81 MG TABLET.DR 1 Tablet ORAL DAILY Comments: NOT GIVEN IN HOSPITAL Simvastatin (Simvastatin*) 20 MG TABLET 1 Tablet ORAL Every night Qty = 30 Comments: NOT GIVEN IN HOSPITAL Glimepiride (Glimepiride) 1 MG TABLET 1 Tablet ORAL DAILY Qty = 30 Comments: NOT GIVEN IN HOSPITAL Saccharomyces Boulardii (Florastor) 250 MG CAPSULE 1 Tablet ORAL TWICE DAILY Qty = 20 Comments: NOT GIVEN IN HOSPITAL Morphine Sulfate (Morphine Sulfate ER) 30 MG TABLET.ER 1 Tablet ORAL TWICE DAILY Ondansetron HCl (Zofran) 4 MG TABLET 1 Tablet ORAL EVERY SIX HOURS as needed for NAUSEA/VOMITING Qty = 15 Oxycodone HCl (Oxycodone HCl) 10 MG TABLET 1 Tablet ORAL Q6H as needed for PAIN Qty = 30 Carisoprodol (SOMA) 250 MG TABLET 1 Tablet ORAL THREE TIMES DAILY Qty = 90 Start taking the following new medications: Vancomycin HCl (Vancomycin HCl) 900 MCG/MG (NOT LESS THAN, LONG TERM) POWDER 125 Milligram ORAL Q6H Qty = 28 No Refills Instructions: TOTAL TEN DAY COURSE
[2017-10-13 22:00] VITALS: BP 114/70
[2017-10-14 06:17] VITALS: BP 120/68
--- NOTE | 2017-10-14 08:18 | PN- Att Addend ---
Attending Addendum Attending Brief Note Patient seen and examined. He is doing okay. He had only 1 bowel movement overnight and as per the nurse it was semi-formed. He hasn't gotten out of bed since he's come here. On exam his blood pressure is 120/68, pulse is 83, breathing at 16-18 and MAXIMUM TEMPERATURE of 98.2. Lungs are clear to auscultation bilaterally, heart is S1-S2 regular, abdomen is soft and mild periumbilical tenderness no rebound or guarding. He has no edema. He has a neurostimulator in his abdomen and the site overlying is clean. He is extremely hard of hearing. His labs are pending. This is an 87-year-old male with a past medical history of prostate CA and previous C. difficile was here with acute C. difficile colitis as evidenced by colitis on the CT, diarrhea and an elevated white count with a positive stool for C. difficile toxin. Appreciate ID evaluation and we have him on oral vancomycin. Because of the white count and the colitis we are considering this a fairly severe episode. Put in a PT eval for today and will follow the number of bowel movements closely.
[2017-10-14 08:58] LABS: ABSOLUTE BASOPHIL COUNT 0 /CUMM (0.0-0.2); ABSOLUTE EOSINOPHIL COUNT 0 /CUMM (0.0-0.7); ABSOLUTE GRANULOCYTE CT 6.8 /CUMM (1.4-6.5); ABSOLUTE LYMPH COUNT 2.2 /CUMM (1.2-3.4); ABSOLUTE MONOCYTE COUNT 0.6 /CUMM (0.10-0.60); BASOPHIL % 0.3 % (0.0-2.0); EOSINOPHIL % 0.5 % (0-5); GRANULOCYTE % 70.3 % (42.2-75.2); HEMATOCRIT 33.3 % (42-52); MEAN CORPUSCULAR HGB 32.4 PG (27.0-31.0); MEAN CORPUSCULAR HGB CONC 34.4 G/DL (33.0-37.0); MEAN CORPUSCULAR VOLUME 94.2 FL (80.0-94.0); MEAN PLATELET VOLUME 7.4 FL (7.4-10.4); RED BLOOD CELL CT 3.54 /CUMM (4.70-6.10); WHITE BLOOD CELL COUNT 9.7 /CUMM (4.8-10.8)
--- NOTE | 2017-10-14 09:32 | PN- Housestaff ---
Subjective Follow-up For: c diff colitis Subjective: I have seen and examined the patient today morning states that he has going in and out of the bathroom last night, otherwise no new complaints. Review of Systems Constitutional: Reports: see HPI. Objective Last 24 Hrs of Vital Signs/I&O Vital Signs Date Time Temp Pulse Resp B/P B/P Pulse O2 O2 Flow FiO2 Mean Ox Delivery Rate 10/14 06 98.2 83 18 120/68 96 Room Air 10/13 2200 98.9 85 18 114/70 92 10/13 1510 98.6 94 20 130/70 96 Intake & Output 10/14 1600 10/14 0800 10/14 0000 Intake Total 400 400 Output Total Balance 400 400 Intake, IV 100 200 Intake, Oral 300 200 Physical Exam General Appearance: Alert, Oriented X3, Cooperative HEENT: Atraumatic, PERRLA, EOMI Neck: Supple, No JVD Cardiovascular: Normal S1, Normal S2, No Murmurs Lungs: Clear to Auscultation, Normal Air Movement Abdomen: Normal Bowel Sounds, Soft, No Tenderness Neurological: Normal Speech, Strength at 5/5 X4 Ext, Normal Tone, Sensation Intact Extremities: No Clubbing, No Cyanosis, No Edema, Normal Pulses Current Medications: Current Medications Sig/Karson Start time Last Medication Dose Route Stop Time Status Admin Acetaminophen 650 MG Q8P PRN 10/13 0500 AC 10/13 PO 0526 Aspirin Buffered 81 MG DAILY 10/14 0900 AC 10/14 PO 0923 Atorvastatin Calcium 10 MG 1700 10/13 1700 AC 10/13 PO 1739 Carisoprodol 350 MG BID 10/13 1400 AC 10/14 PO 0924 Insulin Aspart 0 TIDAC 10/13 0800 AC 10/14 SC 1214 Lactobacillus 1 CAP DAILY 10/14 0900 AC 10/14 Acidophilus PO 0923 Morphine Sulfate 30 MG BID 10/13 2100 AC 10/14 PO 0924 Morphine Sulfate 2 MG ONCE ONE 10/13 1715 DC 10/13 IV 10/13 1716 1740 Ondansetron HCl 4 MG ONCE ONE 10/13 2330 DC 10/13 IV 10/13 2331 2338 Ondansetron HCl 2 MG ONCE ONE 10/13 1800 DC 10/13 IV 10/13 1801 1857 Oxycodone HCl 5 MG Q6 PRN 10/13 1330 AC 10/14 PO 1433 Sodium Chloride 1,000 ML Q20H 10/13 0500 DC 10/13 IV 10/14 0059 0526 Vancomycin HCl 125 MG Q6H 10/13 0830 AC 10/14 PO 1429 Last 24 Hrs of Lab/Duy Results Last 24 Hrs of Labs/Mics: Laboratory Tests 10/14/17 0720: Anion Gap 9, Estimated GFR > 60, BUN/Creatinine Ratio 14.0, CBC w Diff NO MAN DIFF REQ, RBC 3.54 L, MCV 94.2 H, MCH 32.4 H, MCHC 34.4, RDW 14.0, MPV 7.4, Gran % 70.3, Lymphocytes % 22.9, Monocytes % 6.0, Eosinophils % 0.5, Basophils % 0.3, Absolute Granulocytes 6.8 H, Absolute Lymphocytes 2.2, Absolute Monocytes 0.6, Absolute Eosinophils 0, Absolute Basophils 0 10/13/17 1705: Anion Gap 7, Estimated GFR > 60, BUN/Creatinine Ratio 15.0 Lines/Diet/Fluids Restraints: none Assessment/Plan Assessment: This is a 87-year-old male with past medical history of hypertension, hyperlipidemia, chronic back pain secondary to spinal stenosis status post left abdominal wall no stimulator, history of C. difficile colitis, diabetes, history of DVT, prostate cancer status post TURP, radiation, hormonal therapy, appendectomy, that comes in for complaints of 2 days of abdominal pain and 1 day of bloody diarrhea, was last treated for C. difficile colitis with PCR positive in February 2017, was found to be C. difficile positive this admission and obese. Problem list. Problem #1 C. difficile colitis. Problem #2 dehydration. Problem #3 hyponatremia. Problem #4 history of diabetes mellitus. Problem #5 history of DVT. Problem #6 history of prostate cancer. Problem #7 history of thrombocytopenia. Problem #8 history of hyperlipidemia. PRoblem #9 History of spinal stenosis/chronic back pain. Plan * Continue p.o. vancomycin 125 mg for a total of 10 days. * Continue aspirin. * Continue MS Contin which is his home medication. * On regular diet,, will continue to monitor if he tolerates diet fine. * Plenty of hydration by mouth. * Because of C. difficile colitis is unknown, no recent use of antibiotics, no history of PPI usage, unsure the reason for his recurrent colitis. * Continue to follow white count. * Discharge tomorrow if no more episodes of diarrhea. * ct probiotic * PT Evaluation today. Full code. Regular diet. DVT prophylaxis. Problem List: 1. Colitis 2. History of Clostridium difficile colitis 3. C. difficile colitis Pain Ratin Pain Location: abdomen Pain Goal: Remain pain free Pain Plan: current Tomorrow's Labs & Rationales: ..
[2017-10-14 11:35] LABS: PLATELET COUNT 91 /CUMM (130-400)
--- NOTE | 2017-10-14 12:48 | PN- Infect Dx ---
Subjective Subjective: This patient is an 87-year-old man with a history of recurrent C. difficile, treated 19 months prior to admission with a tapering course of Vancomycin, last hospitalized 7 months prior to admission with a recurrent episode, in the absence of antibiotics, with a negative toxin test but a positive PCR, treated with a 2 week course of Flagyl with resolution of his diarrhea, admitted with 2 days of abdominal pain and 1 day of diarrhea with nausea and anorexia. C. difficile toxin is positive. The patient states that overnight he was up every half hour with diarrhea. This morning it is much improved to at least every 2 hours. Review of Systems Comments: 12 point review of systems complete with no other positive findings Objective Last 24 Hrs of Vital Signs/I&O Vital Signs Date Time Temp Pulse Resp B/P B/P Pulse O2 O2 Flow FiO2 Mean Ox Delivery Rate 10/14 0800 96 Room Air 10/14 0617 98.2 83 18 120/68 96 Room Air 10/13 2200 98.9 85 18 114/70 92 10/13 1510 98.6 94 20 130/70 96 Intake & Output 10/14 1600 10/14 0800 10/14 0000 Intake Total 400 400 Output Total Balance 400 400 Intake, IV 100 200 Intake, Oral 300 200 Physical Exam Other Physical Findings: Awake alert oriented 3 Pupils equal and reactive to light and accommodation Neck supple no JVD no lymphadenopathy Lungs clear to auscultation Heart regular rate and rhythm Abdomen soft nontender hyperactive bowel sounds No edema or rash Results Last 24 Hours of Lab Results: Laboratory Tests 10/14 10/13 0720 1705 Chemistry Sodium (137 - 145 mmol/L) 131 L 133 L Potassium (3.5 - 5.1 mmol/L) 3.8 3.5 Chloride (98 - 107 mmol/L) 98 104 Carbon Dioxide (22 - 30 mmol/L) 25 21 L Anion Gap (5 - 16) 9 7 BUN (9 - 20 mg/dL) 7 L 6 L Creatinine (0.7 - 1.2 mg/dL) 0.5 L 0.4 L Estimated GFR (>60 ml/min) > 60 > 60 BUN/Creatinine Ratio (7 - 25 %) 14.0 15.0 Hematology CBC w Diff NO MAN DIFF REQ WBC (4.8 - 10.8 /CUMM) 9.7 RBC (4.70 - 6.10 /CUMM) 3.54 L Hgb (14.0 - 18.0 G/DL) 11.5 L Hct (42 - 52 %) 33.3 L MCV (80.0 - 94.0 FL) 94.2 H MCH (27.0 - 31.0 PG) 32.4 H MCHC (33.0 - 37.0 G/DL) 34.4 RDW (11.5 - 14.5 %) 14.0 Plt Count (130 - 400 /CUMM) 91 L MPV (7.4 - 10.4 FL) 7.4 Gran % (42.2 - 75.2 %) 70.3 Lymphocytes % (20.5 - 51.1 %) 22.9 Monocytes % (1.7 - 9.3 %) 6.0 Eosinophils % (0 - 5 %) 0.5 Basophils % (0.0 - 2.0 %) 0.3 Absolute Granulocytes (1.4 - 6.5 /CUMM) 6.8 H Absolute Lymphocytes (1.2 - 3.4 /CUMM) 2.2 Absolute Monocytes (0.10 - 0.60 /CUMM) 0.6 Absolute Eosinophils (0.0 - 0.7 /CUMM) 0 Absolute Basophils (0.0 - 0.2 /CUMM) 0 Last 24 Hours of Duy Results: Microbiology Date/Time Procedure - Status Source Growth 10/13 1225 Blood Culture - RES BLOOD 10/13 0715 Blood Culture - RES BLOOD 10/13 0328 Clostridium difficile Toxin A & B - RES STOOL CLOSTRIDIUM DIFFICILE 10/13 0328 Vibrio Culture - RES STOOL 10/13 0328 Yersinia Culture - RES STOOL 10/13 0328 Stool Culture - RES STOOL Recent Imaging Studies: No recent studies Assessment/Plan ID Impression: This patient is an 87-year-old man with a history of recurrent C. difficile. Currently afebrile with a normal white blood cell count. C. difficile confirmed and appears to have responded to the vancomycin Suggestion: 1. Continue Vancomycin 125 mg p.o. every 6 hours 2. Follow white blood cell count 3. Monitor duration and frequency of diarrhea.
[2017-10-14 14:24] VITALS: BP 128/56
[2017-10-14 21:39] VITALS: BP 130/70
[2017-10-15 06:20] VITALS: BP 138/76
--- NOTE | 2017-10-15 08:15 | PN- Housestaff ---
See Addendum Subjective Follow-up For: C. Diff Colitis Subjective: Pt seen and examined with family at bedside. Overnight pt had severe pain which required morphine 2mg IV. Was then nauseous and recieved Zofran. Pt states that he has had ~4 episodes of bloody diarrhea at night into the morning. States he had left it in the toilet to collect, where upon inspection there was no diarrhea noted. Complains of LLQ abdominal pain, denies other complaints. States he has not vomited recently, denies any nausea. States he has eaten a small amount of his food although he does not feel hungry. Denies fevers/chills/night sweats/chest pain. Afebrile overnight. No other acute events. Review of Systems Constitutional: Reports: see HPI. Objective Last 24 Hrs of Vital Signs/I&O Vital Signs Date Time Temp Pulse Resp B/P B/P Pulse O2 O2 Flow FiO2 Mean Ox Delivery Rate 10/16 619 98.9 77 16 138/76 96 Room Air 10/14 2139 98.9 80 18 130/70 97 10/14 1424 97.8 84 20 128/56 96 Intake & Output 10/15 1600 10/15 0800 10/15 0000 Intake Total 200 300 Output Total Balance 200 300 Intake, Oral 200 300 Physical Exam General Appearance: Alert, Cooperative, No Acute Distress Skin: No Rashes HEENT: PERRLA, EOMI Cardiovascular: Regular Rate, Normal S1, Normal S2 Lungs: Clear to Auscultation, Normal Air Movement Abdomen: tenderness LLQ Extremities: No Cyanosis, No Edema Current Medications: Current Medications Sig/Karson Start time Last Medication Dose Route Stop Time Status Admin Acetaminophen 650 MG .STK-MED ONE 10/143 DC PO 10/14 230 Acetaminophen 650 MG Q8P PRN 10/13 0500 AC 10/14 PO 2305 Aspirin Buffered 81 MG DAILY 10/14 0900 AC 10/15 PO 0800 Atorvastatin Calcium 10 MG 1700 10/13 1700 AC 10/14 PO 1653 Carisoprodol 350 MG BID 10/13 1400 AC 10/15 PO 0801 Insulin Aspart 0 TIDAC 10/13 0800 AC 10/15 SC 0801 Lactobacillus 1 CAP DAILY 10/14 0900 AC 10/15 Acidophilus PO 0800 Morphine Sulfate 4 MG .STK-MED ONE 10/15 0118 DC IM 10/15 0119 Morphine Sulfate 2 MG ONCE ONE 10/15 0115 DC 10/15 IV 10/15 0116 0120 Morphine Sulfate 30 MG BID 10/13 2100 AC 10/15 PO 0802 Ondansetron HCl 2 MG ONCE ONE 10/15 0415 DC 10/15 IV 10/15 0416 0425 Oxycodone HCl 10 MG Q6 PRN 10/15 0927 AC PO Oxycodone HCl 5 MG Q6 PRN 10/13 1330 DC 10/14 PO 2115 Vancomycin HCl 125 MG Q6H 10/13 0830 AC 10/15 PO 0801 Last 24 Hrs of Lab/Duy Results Last 24 Hrs of Labs/Mics: Laboratory Tests 10/15/17 1038: Anion Gap 10, Estimated GFR > 60, BUN/Creatinine Ratio 14.0 Assessment/Plan Assessment: 87-year-old male with past medical history of C. difficile colitis last treated in February 2017, HTN, HLD chronic back pain secondary to spinal stenosis status post left abdominal wall nerve stimulator, DM, history of DVT, prostate cancer status post TURP, radiation, hormonal therapy, appendectomy, that comes in for complaints of 2 days of abdominal pain and 1 day of bloody diarrhea, admitted for C. Difficile colitis. C. Diff Colitis: -Positive for C. Diff toxin A on 10/13 -Continue PO Vanco 125mg q6 -WBC normalized (14.8 --> 9.7 today) -Pain resolving although still present, will restart MS contin and increase dose of oxycodone. -Will monitor pts complaint of bloody stools. Currently have no evidence but if there is blood we will order CBC for tomorrow. -Tolerating diet -Continue probiotics -Zofran PRN for nausea DM -on Novolog Problem List: 1. Colitis Pain Ratin Pain Location: LLQ Pain Goal: Pain 4 or less Pain Plan: Morphine, MS Contin Tomorrow's Labs & Rationales: possible CBC if bloody stools, BMP
--- NOTE | 2017-10-15 09:29 | PN- Att Addend ---
Attending Addendum Attending Brief Note Patient seen and examined. 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 Patient says he feels lousy and he says he still going to the bathroom and its blood in his bowel movement when he goes. Nursing has documented only 1 bowel movement yesterday at 2 in the afternoon. I spoke to the nurse and she said he's not had anymore diarrhea and he hasn't called her so she's not aware of the blood. The white count has come down from 14-9000 and he has chronic thrombocytopenia. Sodium is 131 range. He had a lot of abdominal pain and cramping yesterday. He is an 87-year-old gentleman with a past medical history of prostate CA previous treatment, chronic opiate dependence with chronic back pain and previous neurostimulator and previous history of C. difficile. He is here with acute C. difficile colitis we are treating him with by mouth Vanco. I've asked him clearly to call the nurse when he has his bowel movement. For now will continue the oral Vanco. We restarted his long-acting MS Contin that he normally takes and I increased the dose of the oxycodone when necessary which he normally takes to his usual dose of 10mg every 6. PT has cleared him for home self care so once his bowel movements are better likely discharge in the next 24-48 hours.
--- NOTE | 2017-10-15 10:16 | Patient Discharge Instructions ---
Discharge Instructions General Discharge Information Special Instructions: - Please follow up with your primary care physician within 1-2 weeks of discharge. Inform your primary care physician of this admission to [facility]. - Continue your current medications per discharge instructions. - Please watch for these problems: Fever, Chills, Nausea, Vomiting, Shortness of Breath, Productive Cough, Chest Pain/Discomfort, Abdominal Pain, Active Bleeding or Bloody urine/stool. Acute Coronary Syndrome Inclusion Criteria At DC or during hospital stay patient has or had the following: ACS DIAGNOSIS No Discharge Core Measures Meds if any: Prescribed or Continued at Discharge Meds if any: NOT Prescribed or Continued at Discharge Congestive Heart Failure Inclusion Criteria At DC or during hospital stay patient has or had the following: CHF DIAGNOSIS No Discharge Core Measures Meds if any: Prescribed or Continued at Discharge Meds if any: NOT Prescribed or Continued at Discharge Cerebrovascular accident Inclusion Criteria At DC or during hospital stay patient has or had the following: CVA/TIA Diagnosis No Discharge Core Measures Meds if any: Prescribed or Continued at Discharge Meds if any: NOT Prescribed or Continued at Discharge Venous thromboembolism Inclusion Criteria VTE Diagnosis No VTE Type NONE VTE Confirmed by (Test) NONE Discharge Core Measures - Per Current guidelines, there needs to be overlap - treatment for the first 5 days of Warfarin therapy. - If discharged on Warfarin prior to 5 days of - overlap therapy, the patient will need to be - assessed for post discharge needs including - *Post discharge parental anticoagulation - *Warfarin and/or parental anticoagulation education - *Follow up date to check INR post discharge At least 5 days overlap therapy as Inpatient No Meds if any: Prescribed or Continued at Discharge Note: Overlap Therapy is Warfarin and Anticoagulant Meds if any: NOT Prescribed or Continued at Discharge
--- NOTE | 2017-10-15 11:10 | PN- Infect Dx ---
Subjective Subjective: This patient is an 87-year-old man with a history of recurrent C. difficile. The patient states again that overnight he was up every half hour with diarrhea. This morning it is much improved. He remains afebriel with WBC pending. Review of Systems Comments: As noted in HPI Objective Last 24 Hrs of Vital Signs/I&O Vital Signs Date Time Temp Pulse Resp B/P B/P Pulse O2 O2 Flow FiO2 Mean Ox Delivery Rate 10/15 0520 98.9 77 16 138/76 96 Room Air 10/14 2139 98.9 80 18 130/70 97 10/14 1424 97.8 84 20 128/56 96 Intake & Output 10/15 1600 10/15 0800 10/15 0000 Intake Total 200 300 Output Total Balance 200 300 Intake, Oral 200 300 Physical Exam Other Physical Findings: Awake alert and oriented 3 Neck supple no JVD Lungs clear to auscultation bilaterally Heart regular rate and rhythm S1-S2 Abdomen soft and hyperactive No neurologic deficit No edema or rash Results Last 24 Hours of Lab Results: Laboratory Tests 10/15 1038 Chemistry Sodium Pending Potassium Pending Chloride Pending Carbon Dioxide Pending Anion Gap Pending BUN Pending Creatinine Pending BUN/Creatinine Ratio Pending Last 24 Hours of Duy Results: Microbiology Date/Time Procedure - Status Source Growth 10/13 1225 Blood Culture - RES BLOOD 10/13 0715 Blood Culture - RES BLOOD 10/13 0328 Clostridium difficile Toxin A & B - RES STOOL CLOSTRIDIUM DIFFICILE 10/13 0328 Vibrio Culture - RES STOOL 10/13 0328 Yersinia Culture - RES STOOL 10/13 0328 Stool Culture - RES STOOL Recent Imaging Studies: No new studies Assessment/Plan ID Impression: This patient is an 87-year-old man with a history of recurrent C. difficile. Currently afebrile with a normal white blood cell count. C. difficile confirmed diarrhea appears to worsen at night. The patient states that he has blood in his stools. Suggestion: 1. Continue vancomycin 125 mg by mouth every 6 hours 2. Follow white blood cell count 3. Collect stool and urine 4. Moderate duration and frequency of diarrhea 5. Would hold off discharge for now
[2017-10-15 14:28] VITALS: BP 132/66
[2017-10-15 22:12] VITALS: BP 124/60
[2017-10-16 06:50] VITALS: BP 120/70
--- NOTE | 2017-10-16 07:49 | PN- Housestaff ---
Skyler Brown 10/16/17 0749: Subjective Follow-up For: C. difficile colitis Subjective: Patient seen and examined at bedside. Patient states that he had one well- formed bowel movement overnight. Patient also states that he had one episode of watery diarrhea. Patient states he still has abdominal pain left lower quadrant rated 8 out of 10 which is unchanged from yesterday. Patient states that he had one episode of nausea which was relieved with Zofran overnight. Patient denies vomiting. Patient states that he is eating and drinking well. Patient denies fevers/chills/night sweats/chest pain/shortness of breath. Afebrile overnight. Review of Systems Constitutional: Reports: see HPI. Objective Last 24 Hrs of Vital Signs/I&O Vital Signs Date Time Temp Pulse Resp B/P B/P Pulse O2 O2 Flow FiO2 Mean Ox Delivery Rate 10/16 0650 98.9 84 18 120/70 96 Room Air 10/15 2212 98.5 104 20 124/60 94 10/15 1428 98.0 122 20 132/66 95 Intake & Output 10/16 1600 10/16 0800 10/16 0000 Intake Total 300 200 Output Total Balance 300 200 Intake, Oral 300 200 Number 1 Bowel Movements Physical Exam General Appearance: Alert, Oriented X3, Cooperative, No Acute Distress Skin: No Rashes, No Breakdown HEENT: Mucous Membr. moist/pink Cardiovascular: Regular Rate, Normal S1, Normal S2, No Murmurs Lungs: Clear to Auscultation, Normal Air Movement Abdomen: Soft, LLQ tenderness Neurological: Normal Gait, Normal Speech, Strength at 5/5 X4 Ext Extremities: No Cyanosis, No Edema Current Medications: Current Medications Sig/Karson Start time Last Medication Dose Route Stop Time Status Admin Acetaminophen 650 MG Q8P PRN 10/13 0500 AC 10/14 PO 2305 Aspirin Buffered 81 MG DAILY 10/14 0900 AC 10/16 PO 0807 Atorvastatin Calcium 10 MG 1700 10/13 1700 AC 10/15 PO 1723 Carisoprodol 350 MG BID 10/13 1400 AC 10/16 PO 0802 Insulin Aspart 0 TIDAC 10/13 08 AC 10/16 SC 0801 Lactobacillus 1 CAP DAILY 10/14 0900 AC 10/16 Acidophilus PO 0807 Morphine Sulfate 30 MG BID 10/13 2100 AC 10/16 PO 0801 Ondansetron HCl 2 MG ONCE ONE 10/16 629 DC 10/16 IV 10/16 630 06 Oxycodone HCl 10 MG Q6 PRN 10/15 926 AC 10/16 PO 0203 Vancomycin HCl 125 MG Q6H 10/13 08 AC 10/16 PO 0800 Last 24 Hrs of Lab/Duy Results Last 24 Hrs of Labs/Mics: Laboratory Tests 10/16/17 0802: Anion Gap 11, Estimated GFR > 60, BUN/Creatinine Ratio 13.3, CBC w Diff NO MAN DIFF REQ, RBC 3.89 L, MCV 94.0, MCH 32.4 H, MCHC 34.4, RDW 13.9, MPV 7.2 L, Gran % 66.2, Lymphocytes % 25.7, Monocytes % 7.1, Eosinophils % 0.5, Basophils % 0.5, Absolute Granulocytes 9.1 H, Absolute Lymphocytes 3.5 H, Absolute Monocytes 1.0 H, Absolute Eosinophils 0.1, Absolute Basophils 0.1 Assessment/Plan Assessment: 87-year-old male with past medical history of C. difficile colitis last treated in February 2017, HTN, HLD chronic back pain secondary to spinal stenosis status post left abdominal wall nerve stimulator, DM, history of DVT, prostate cancer status post TURP, radiation, hormonal therapy, appendectomy, that comes in for complaints of 2 days of abdominal pain and 1 day of bloody diarrhea, admitted for C. Difficile colitis. C. Diff Colitis: -Positive for C. Diff toxin A on 10/13 -Continue PO Vanco 125mg q6 -Restarted home pain medication. -Patient has had several normal stools. -Tolerating diet -Continue probiotics -Zofran PRN for nausea DM -on Novolog DVT ppx Full Code Will seek discharge home today as patient has improved clinically and is already on p.o. antibiotics. Will follow up with PCP within 1-2 weeks Problem List: 1. Colitis Pain Ratin Pain Location: LLQ, stable Pain Goal: Pain 7 or less Pain Plan: PRN, restart home meds Tomorrow's Labs & Rationales: na Discharge Plan Discharge Disposition: home Stable for Discharge? Yes Anticipated Discharge (Day): today Boris Gaffney 10/16/17 1027: Attending MD Review Statement Attending Statement Attending MD Statement: examined this patient, discuss w/resident/PA/RAILROAD TRACK INSPECTOR, agreed w/resident/PA/RAILROAD TRACK INSPECTOR, discussed with family, reviewed EMR data (avail), discussed with nursing, discussed with case mgmt, reviewed images, amended to note Attending Assessment/Plan: Patient seen/examined bedside. Denies any new complaints. Patient has formed stool this morning. His vital stable. afebrile. Pateint tolerating PO and abdominal pain getting better. Patient can be discharged in satisfactory condition with outpatient follow up PCP in 1 week of discharge. His pain management as scheduled appointment. He is instrcuted to complete his antibitoics course.
[2017-10-16 08:33] LABS: ABSOLUTE BASOPHIL COUNT 0.1 /CUMM (0.0-0.2); ABSOLUTE EOSINOPHIL COUNT 0.1 /CUMM (0.0-0.7); ABSOLUTE GRANULOCYTE CT 9.1 /CUMM (1.4-6.5); ABSOLUTE LYMPH COUNT 3.5 /CUMM (1.2-3.4); BASOPHIL % 0.5 % (0.0-2.0); EOSINOPHIL % 0.5 % (0-5); HEMATOCRIT 36.5 % (42-52); MEAN CORPUSCULAR HGB 32.4 PG (27.0-31.0); MEAN CORPUSCULAR HGB CONC 34.4 G/DL (33.0-37.0); MEAN PLATELET VOLUME 7.2 FL (7.4-10.4); RBC DISTRIBUTION WIDTH 13.9 % (11.5-14.5); RED BLOOD CELL CT 3.89 /CUMM (4.70-6.10); WHITE BLOOD CELL COUNT 13.8 /CUMM (4.8-10.8)
[2017-10-16 09:11] LABS: GRANULOCYTE % 66.2 % (42.2-75.2); PLATELET COUNT 125 /CUMM (130-400)
[2017-10-16] MEDS ORDERED: VANCOMYCIN HCL5 G1 PO ×2 (09:35→09:40)
--- NOTE | 2017-10-16 11:19 | Discharge Summary ---
Visit Information Visit Dates Admission Date: 10/13/17 Discharge Date: 10/16/17 Hospital Course Course Attending Physician: Boris Gaffney MD Primary Care Physician: Kurt KELLY,Rudi Banuelos Other Care Providers: Infectious Disease: Leta KELLY, Eamon Matamoros MD Hospital Course: Patient is an 87-year-old male with a past medical history significant for hypertension, hyperlipidemia, chronic back pain secondary to spinal stenosis status post left abdominal wall nerve stimulator, history of C. difficile colitis, diabetes, history of DVT, prostate cancer status post TURP, radiation, hormonal therapy, appendectomy, that came in for complaints of 2 days abdominal pain and 1 day of bloody diarrhea. In the ED, vitals were: temperature 99.9, heart rate 105, respiratory rate 20, blood pressure 133/79, 95% oxygen saturation on room air. -EKG showed a rate of 99 with multiple PACs and a QTC of 457, evidence of incomplete right bundle branch block. -Labs showed WBC 14.3, hemoglobin 13 which is his baseline, platelets 101 which is his baseline, sodium 129, potassium 4.4, normal LFTs, calcium, troponins. -CT of the abdomen showed colitis with no drainable fluid collection and a large fat-containing left inguinal hernia. In the ED he received vancomycin by mouth, 1 L fluids, Zofran, morphine 4 mg 1. The patient was admitted to general medical floor. Stool cultures were taken. ID was consulted. The patient was placed on vancomycin 125 mg every 6 by mouth. His CBC was monitored for drop in hemoglobin as patient was guaic positive as well as to trend the WBCs. The patient was placed on a full liquid diet and was advanced as tolerated. Yersina and Vibrio cultures were negative. Pts diarrhea improved and began having normal stools. Patient's home medications were restarted. His white count normalized except for 7/2's which could be artifact (please refer to Dr. Matamoros's note) and he was discharged to home with instructions to complete his 10 day course of p.o. vancomycin and follow-up with his primary care provider Dr. Hicks. Of note this patient presented 7 months prior with C. difficile colitis. However given the time from previous admission this was treated as a new onset instead of a recurrence hence the 10 day course of antibiotics instead of 4 weeks. Allergies: Coded Allergies: penicillin V (HIVES 11/27/16) metoclopramide (Severe, DIARRHEA 11/27/16) Significant Procedures: CT ABDOMEN AND PELVIS WITH CONTRAST CLINICAL INFORMATION: Periumbilical pain. Chills, nausea. History of C. difficile colitis. COMPARISON: February 21, 2017. TECHNIQUE: Contiguous axial thin section helical images of the abdomen and pelvis were performed following the administration of 95 mL of intravenous Optiray 320. The data set was reformatted in the coronal and sagittal planes and reviewed on an independent workstation. DLP: 264 mGy-cm. FINDINGS: The visualized lung bases are clear. The visualized portions of the heart are unremarkable. There is a small hiatal hernia. The liver is of normal size and attenuation without focal lesions nor intrahepatic biliary ductal dilation. A normal gallbladder is identified. There is no wall thickening or discernible pericholecystic fluid. The spleen, pancreas, adrenal glands are unremarkable. Both kidneys are of normal size and attenuation without hydronephrosis or nephrolithiasis. There is stable bilateral renal cysts. Following the administration of IV contrast, prompt symmetric nephrograms are displayed. There is no abdominal free fluid. There is neither mesenteric nor retroperitoneal lymphadenopathy. There is diffuse wall thickening to the sigmoid colon. There is adjacent fat stranding. There are no fluid collections. Otherwise, unremarkable unopacified loops of small and large bowel are identified. There is no pelvic free fluid. The urinary bladder is unremarkable. There is neither pelvic nor inguinal lymphadenopathy. There is a large fat-containing left inguinal hernia. Bone windows: Neither sclerotic nor lytic bone lesions are identified. The osseous structures are stable. There is a stable defect to the left innominate bone. IMPRESSION: Diffuse sigmoid colon wall thickening indicative of colitis. No drainable fluid collections. Large fat-containing left inguinal hernia. Disposition Summary Disposition Principal Diagnosis: C. difficile colitis Additional Diagnosis: Diabetes mellitus Discharge Disposition: home or self care Discharge Instructions General Discharge Information Code Status: Full Code Patient's Diet: As tolerated Patient's Activity: As tolerated Follow-Up Instructions/Appts: Please follow-up with her primary care practitioner within 1-2 weeks after hospital discharge. Medications at Discharge Discharge Medications: Continue taking these medications: Aspirin (Ecotrin*) 81 MG TABLET.DR 1 Tablet ORAL DAILY Comments: Last Taken: 10/16/17 Time: 8:07 AM Simvastatin (Simvastatin*) 20 MG TABLET 1 Tablet ORAL Every night Qty = 30 Comments: NOT GIVEN IN HOSPITAL Glimepiride (Glimepiride) 1 MG TABLET 1 Tablet ORAL DAILY Qty = 30 Comments: NOT GIVEN IN HOSPITAL Saccharomyces Boulardii (Florastor) 250 MG CAPSULE 1 Tablet ORAL TWICE DAILY Qty = 20 Comments: NOT GIVEN IN HOSPITAL Morphine Sulfate (Morphine Sulfate ER) 30 MG TABLET.ER 1 Tablet ORAL TWICE DAILY Ondansetron HCl (Zofran) 4 MG TABLET 1 Tablet ORAL EVERY SIX HOURS as needed for NAUSEA/VOMITING Qty = 15 Comments: Last Taken: 10/16/17 Time: 6:27 AM Oxycodone HCl (Oxycodone HCl) 10 MG TABLET 1 Tablet ORAL Q6H as needed for PAIN Qty = 30 Comments: Last Taken: 10/16/17 Time: 2:03 AM Carisoprodol (SOMA) 250 MG TABLET 1 Tablet ORAL THREE TIMES DAILY Qty = 90 Comments: Last Taken: 10/16/17 Time: 8:02 AM Vancomycin HCl (Vancomycin HCl) 900 MCG/MG (NOT LESS THAN, NURSING HOME) POWDER 125 Milligram ORAL Q6H Qty = 26 Instructions: TOTAL TEN DAY COURSE Comments: 10/16 please take your remaining dose of vancomycin today This prescription has been renewed Copies To: Kurt KELLY,Rudi Banuelos Attending MD Review Statement Documenting Attending: Boris Gaffney MD Other Findings: Denies any new complaints. Patient has formed stool this morning. His vital stable. afebrile. Pateint tolerating PO and abdominal pain getting better. Patient can be discharged in satisfactory condition with outpatient follow up PCP in 1 week of discharge. His pain management as scheduled appointment. He is instrcuted to complete his antibitoics course.
--- NOTE | 2017-10-16 12:49 | PN- Infect Dx ---
Subjective Subjective: Afebrile. He notes improvement in his diarrhea with a formed bowel movement this morning. He still notes periumbilical pain. Objective Last 24 Hrs of Vital Signs/I&O Vital Signs Date Time Temp Pulse Resp B/P B/P Pulse O2 O2 Flow FiO2 Mean Ox Delivery Rate 10/16 08 Room Air 10/16 0650 98.9 84 18 120/70 96 Room Air 10/15 2212 98.5 104 20 124/60 94 10/15 1428 98.0 122 20 132/66 95 Intake & Output 10/16 1600 10/16 0800 10/16 0000 Intake Total 300 200 Output Total Balance 300 200 Intake, Oral 300 200 Number 1 Bowel Movements Physical Exam Other Physical Findings: He appears comfortable in no acute distress Abdomen is soft, tender on palpation in the periumbilical area and left lower quadrant, with no guarding or rebound Results Last 24 Hours of Lab Results: Laboratory Tests 10/16 08 Chemistry Sodium (137 - 145 mmol/L) 129 L Potassium (3.5 - 5.1 mmol/L) 3.8 Chloride (98 - 107 mmol/L) 94 L Carbon Dioxide (22 - 30 mmol/L) 24 Anion Gap (5 - 16) 11 BUN (9 - 20 mg/dL) 8 L Creatinine (0.7 - 1.2 mg/dL) 0.6 L Estimated GFR (>60 ml/min) > 60 BUN/Creatinine Ratio (7 - 25 %) 13.3 Hematology CBC w Diff NO MAN DIFF REQ WBC (4.8 - 10.8 /CUMM) 13.8 H RBC (4.70 - 6.10 /CUMM) 3.89 L Hgb (14.0 - 18.0 G/DL) 12.6 L Hct (42 - 52 %) 36.5 L MCV (80.0 - 94.0 FL) 94.0 MCH (27.0 - 31.0 PG) 32.4 H MCHC (33.0 - 37.0 G/DL) 34.4 RDW (11.5 - 14.5 %) 13.9 Plt Count (130 - 400 /CUMM) 125 L MPV (7.4 - 10.4 FL) 7.2 L Gran % (42.2 - 75.2 %) 66.2 Lymphocytes % (20.5 - 51.1 %) 25.7 Monocytes % (1.7 - 9.3 %) 7.1 Eosinophils % (0 - 5 %) 0.5 Basophils % (0.0 - 2.0 %) 0.5 Absolute Granulocytes (1.4 - 6.5 /CUMM) 9.1 H Absolute Lymphocytes (1.2 - 3.4 /CUMM) 3.5 H Absolute Monocytes (0.10 - 0.60 /CUMM) 1.0 H Absolute Eosinophils (0.0 - 0.7 /CUMM) 0.1 Absolute Basophils (0.0 - 0.2 /CUMM) 0.1 Last 24 Hours of Duy Results: Stool C. difficile October 13 positive Blood cultures 2 October 13 negative Assessment/Plan ID Impression: Improved, with temperatures remaining normal, on p.o. Vancomycin, Day 4 of treatment for C. difficile colitis, with his stools now formed. He continues to have periumbilical pain, which has been a chronic complaint, though he currently denies that. His white blood cell count had normalized but is up again today, possibly artifactual, and it should be repeated. Suggestion: 1. Repeat CBC 2. Continue po Vancomycin to complete a 10 day course
== END 2017-10-16 12:34 | DRG 372 ==
LOC: ERH 22:18 → ERHI 10-13 03:18 → 2NA 10-13 03:18 → ENRESERV 10-13 03:44 → 2NA 10-13 05:21 → ENPENDDIS 10-16 10:16 → ENTRNSPT 10-16 12:28 → EDTRNSPTSTS 10-16 12:29 → EDTRNSPT 10-16 12:29 → 2NA 10-16 12:34 → CMPTRNSPT 10-16 13:01
PROVIDERS: Emergency Medicine; Internal Medicine; Physical Medicine & Rehabilitation; Preventive Medicine Public Health & General Preventive Medicine
DX: A04.71 Enterocolitis due to Clostridium difficile, recurrent (principal); E87.1 Hypo-osmolality and hyponatremia; E86.0 Dehydration; E11.9 Type 2 diabetes mellitus without complications; I10 Essential (primary) hypertension; E78.5 Hyperlipidemia, unspecified; G89.29 Other chronic pain; M54.9 Dorsalgia, unspecified; Z79.84 Long term (current) use of oral hypoglycemic drugs; Z90.79 Acquired absence of other genital organ(s); Z86.718 Personal history of other venous thrombosis and embolism; Z90.49 Acquired absence of other specified parts of digestive tract; Z88.0 Allergy status to penicillin; Z88.8 Allergy status to other drugs, medicaments and biological substances; Z85.46 Personal history of malignant neoplasm of prostate
CPT/HCPCS: 2NAP; 36592; 74177; 82436; 87015; 87040; 87045; 87899; 87899-59; 93005; 93010; 96374; 96375; 97116-GO; 97161-GP; J1885; J2405

== ENCOUNTER 2017-10-21 18:06 | Inpatient (IN) | payer OTHER, MEDICARE ==
[~2017-10-21] VITALS: Ht 165.1 cm; Wt 62.7 kg
[~2017-10-21 18:06] MED LIST changes: +OXYCODONE HCL10 M2 PO
--- NOTE | 2017-10-21 18:55 | ED GI/GU/ABDOMINAL COMPLAINT ---
History of Present Illness General Chief Complaint: Abdominal Pain/Flank Pain Stated Complaint: ABD. PAIN, CONSTIPATION, +C. DIFF 2WKS AGO Source: patient Exam Limitations: no limitations Vital Signs & Intake/Output Vital Signs & Intake/Output Vital Signs Date Time Temp Pulse Resp B/P B/P Pulse O2 O2 Flow FiO2 Mean Ox Delivery Rate 10/21 2149 97.9 87 18 154/73 92 Room Air 10/22 1955 99.0 92 18 157/86 94 Room Air 10/21 1818 96 10/21 1809 98.5 107 18 157/70 95 Room Air Room Air Allergies Coded Allergies: penicillin V (HIVES 11/27/16) metoclopramide (Severe, DIARRHEA 11/27/16) Reconcile Medications Aspirin (Ecotrin*) 81 MG TABLET.DR 1 TAB PO DAILY HEART/BLOOD (Reported) Carisoprodol (SOMA) 250 MG TABLET 1 TAB PO TID PAIN (Reported) Glimepiride 1 MG TABLET 1 TAB PO DAILY DM (Reported) Morphine Sulfate (Morphine Sulfate ER) 30 MG TABLET.ER 1 TAB PO BID PAIN ( Reported) Ondansetron HCl (Zofran) 4 MG TABLET 1 TAB PO Q6 PRN NAUSEA/VOMITING Oxycodone HCl 10 MG TABLET 1 TAB PO Q6H PRN PAIN (Reported) Saccharomyces Boulardii (Florastor) 250 MG CAPSULE 1 TAB PO BID DIARRHOEA Simvastatin (Simvastatin*) 20 MG TABLET 1 TAB PO QPM CHOLESTEROL (Reported) Vancomycin HCl 900 MCG/MG (NOT LESS THAN, LONG TERM) POWDER 125 MG PO Q6H C DIFF TOTAL TEN DAY COURSE Triage Note: TRIAGE: 87 Y/O MALE PRESENTS 9/10 ABDOMINAL PAIN X3 DAYS. LAST BOWEL MOVEMENT A FEW DAYS AGO WELL. Triage Nurses Notes Reviewed? yes HPI: 87-year-old male presents to the emergency department complaining of 9/10 abdominal pain. Patient states his symptoms have been present for a few days now. According to patient's daughter he has not had a bowel movement today. He had a small bowel movement yesterday. He has felt constipated for the last 3 days. He typically has 3 bowel movements a day so this is not normal for him. Patient was recently admitted here approximately 2 weeks ago for C. difficile infection. He has a history of C. difficile infections. He denies diarrhea currently. No fever chills. No nausea or vomiting. No chest pain or shortness of breath. No hematuria or dysuria. States he is still finishing the antibiotics from his previous C. difficile infection. (Pietro Kennedy PA-C) Past History Travel History Traveled to [place] past 21 day No Medical History Any Pertinent Medical History? see below for history Neurological: torticollis EENT: cataracts Cardiovascular: hypertension, hyperlipidemia, IRBBB Respiratory: NONE Gastrointestinal: hiatal hernia, 09/2013- colonoscopy- stricture at 15cm bx negative + C.DIFF L femoral hernia Renal: L renal cyst Musculoskeletal: chronic back pain, disk herniation, degen joint disease, spinal stenosis Psychiatric: NONE Endocrine: NIDDM Blood Disorders: DVT, thrombocytopenia Cancer(s): prostate cancer (RT/hormonal [place]) ORGAN BUILDER/Reproductive: NONE History of MRSA: No History of VRE: No History of CDIFF: Yes Surgical History Surgical History: appendectomy, cataract removal (06/2014: cat OU), hernia repair-inguinal, prostatectomy, 05/2006: neurostimulator; mult back surgeries ; Psychosocial History Who do you live with Spouse Services at Home None What is your primary language Chadian Tobacco Use: Never used ETOH Use: denies use Illicit Drug Use: denies illicit drug use Family History Family History, If Any: BROTHER (Pt unsure as to FHx, but denies FHx of GI Ca, GI disease, or inherited liver disease.). Relation not specified for: No pertinent family history Hx Contributory? No (Pietro Kennedy PA-C) Review of Systems Review of Systems Constitutional: Reports: no symptoms. EENTM: Reports: no symptoms. Respiratory: Reports: no symptoms. Cardiovascular: Reports: no symptoms. GI: Reports: see HPI. Genitourinary: Reports: no symptoms. Musculoskeletal: Reports: no symptoms. Skin: Reports: no symptoms. Neurological/Psychological: Reports: no symptoms. Hematologic/Endocrine: Reports: no symptoms. Immunologic/Allergic: Reports: no symptoms. All Other Systems: Reviewed and Negative (Pietro Kennedy PA-C) Physical Exam Physical Exam General Appearance: well developed/nourished, no apparent distress Head: atraumatic, normal appearance Eyes: Bilateral: normal appearance, PERRL, EOMI. Ears, Nose, Throat, Mouth: moist mucous membrane Neck: normal inspection, supple Respiratory: normal breath sounds, no respiratory distress, quiet respiration, lungs clear Cardiovascular: RRR, No M/R/G Peripheral Pulses: 2+ radial (R), 2+ radial (L) Gastrointestinal: Hyperactive bowel sounds, abdomen is soft, mild diffuse TTP, mild distension, no masses or organomegaly. Neurologic/Psych: awake, alert, oriented x 3 Skin: intact, normal color, warm/dry Core Measures ACS in differential dx? No Sepsis Present: No Sepsis Focused Exam Completed? No (Brent ORDONEZ,Pietro) Progress Differential Diagnosis: bowel obstruction, diverticulitis, ischemic bowel, SBO, UTI/pyelo, colitis Plan of Care: Orders Procedure Date/time Status Heart Healthy Diet 10/22 B Active Patient Data 10/21 2233 Active ED Holding Orders 10/21 2222 Active Admit to inpatient 10/21 2222 Active Vital Signs 10/21 2222 Active Code Status 10/21 2222 Active URINALYSIS 10/22 1843 Complete TROPONIN LEVEL 10/22 1843 Complete LIPASE 10/22 1843 Complete LACTIC ACID 10/22 1843 Complete COMPREHENSIVE METABOLIC PANEL 10/22 1843 Complete CBC WITHOUT DIFFERENTIAL 10/22 1843 Complete Laboratory Tests 10/21/17 2144: Lactic Acid Cancelled 10/21/171903: Anion Gap 9, Estimated GFR > 60, BUN/Creatinine Ratio 13.3, Glucose 241 H, Lactic Acid 1.1, Calcium 8.9, Total Bilirubin 0.9, AST 38, ALT 22, Alkaline Phosphatase 42, Troponin I 0.02, Total Protein 6.9, Albumin 3.9, Globulin 3.0, Albumin/Globulin Ratio 1.3, Lipase 16 L, CBC w Diff NO MAN DIFF REQ, RBC 4.40 L, MCV 93.8, MCH 31.3 H, MCHC 33.4, RDW 14.3, MPV 6.4 L, Gran % 72.9, Lymphocytes % 22.2, Monocytes % 4.1, Eosinophils % 0.3, Basophils % 0.5, Absolute Granulocytes 14.1 H, Absolute Lymphocytes 4.3 H, Absolute Monocytes 0.8 H, Absolute Eosinophils 0.1, Absolute Basophils 0.1 10/21/171900: Urinalysis LIGHT H, Urine Color YEL, Urine Clarity CLEAR, Urine pH 6.5, Ur Specific Carter 1.015, Urine Protein 30 H, Urine Ketones 15 H, Urine Nitrite NEG, Urine Bilirubin NEG, Urine Urobilinogen 0.2, Ur Leukocyte Esterase NEG, Ur Microscopic SEDIMENT EXAMINED, Urine RBC 1-3, Ur Epithelial Cells RARE, Urine Bacteria RARE H, Urine Hemoglobin TRACE-INTACT H, Urine Glucose 500 H Diagnostic Imaging: Viewed by Me: CT Scan. Discussed w/RAD: CT Scan. Radiology Impression: PATIENT: SAMI KING JR PRESENT AGE: 87 PATIENT ACCOUNT NO: [id number] : 31 LOCATION: [facility] ORDERING PHYSICIAN: Pietro Kennedy PA-C SERVICE DATE: 10/21/17 EXAM TYPE: CAT - CT ABD & PELVIS W IV CONTRAST EXAMINATION: CT ABDOMEN AND PELVIS WITH CONTRAST CLINICAL INFORMATION: Abdominal pain. Recent history of C. difficile. No bowel movement 2 days. Distended. COMPARISON: 10/13/2017 TECHNIQUE: Multidetector volumetric imaging was performed of the abdomen and pelvis following IV administration of 95 mL of Optiray 320 intravenous contrast. Sagittal and coronal reformatted images were obtained on the technologist's workstation. DLP: 267.5 mGy-cm FINDINGS: LUNG BASES: Mild dependent atelectasis. Calcific atherosclerosis is present in the coronary arteries. LIVER, GALLBLADDER , AND BILIARY TREE: The liver is normal in size, shape, and attenuation. No focal hepatic lesion or biliary ductal dilatation is present. A small amount of heterogeneous dependent low-density material is present in the gallbladder, possibly small low-density stones or sludge. Gallbladder is otherwise normal in appearance. No wall thickening or fat stranding. PANCREAS: Atrophic. No ductal dilatation or focal abnormalities. SPLEEN: Unremarkable. ADRENAL GLANDS: Unremarkable. KIDNEYS AND URETERS: A few renal cysts are again noted, unchanged. The largest of these measures 5.3 cm and is exophytic at the inferior margin of the left kidney. Kidneys enhance symmetrically. No perinephric stranding. No hydronephrosis or nephrolithiasis. Ureters normal in course and caliber. BLADDER : Normal GASTROINTESTINAL TRACT: As seen on the prior study, there is wall thickening, mucosal hyperenhancement, and pericolonic fat stranding in the descending and sigmoid colon. The inflammation is improved at the sigmoid colon and more pronounced in the descending colon. Moderate to large volume of stool is present throughout the colon with the exception of the sigmoid colon. No evidence of perforation. No fluid collection or abscess. Fat stranding around the descending colon in the anterior pararenal fascia and lateroconal fascia has progressed. Incidental note is made of a diffusely one diverticula. No diverticulitis. ABDOMINAL WALL: Fat-containing left inguinal hernia is noted. No bowel involvement. LYMPH NODES: Normal. VASCULAR: Calcific atherosclerosis is present in the abdominal aorta and its major ostia. No aneurysmal dilatation. PELVIC VISCERA: Prostate gland is enlarged. Coarse central calcifications are present in the prostate. OSSEOUS STRUCTURES: There is moderate multilevel degenerative disc disease in the lumbar spine. A spinal stimulator lead is present in the overlying superficial soft tissues. No acute osseous abnormalities are identified. 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 IMPRESSION: 1. Colitis in the left hemicolon is worse in the descending colon and improved in the sigmoid colon as compared to 10/13/2017. 2. Moderate to large stool volume, primarily in the ascending, transverse, and proximal descending colon. 3. Large fat-containing left inguinal hernia. DICTATED BY: Pietro David MD DATE/TIME DICTATED:10/21/172118 PEDIATRIC DENTAL ASSISTANT:MARISSA DATE/TIME TRANSCRIBED:10/21/172118 CONFIDENTIAL, DO NOT COPY WITHOUT APPROPRIATE AUTHORIZATION. <Electronically signed in Other Vendor System> SIGNED BY: Pitero David MD 10/21/172131 Initial ED EKG: none Comments: Patient is an 87-year-old male with a history of C. difficile colitis presenting today with worsening abdominal pain and constipation. He was recently admitted last week for C. difficile colitis. He was discharged on oral vancomycin. Over the past 3 days he has been having 10 out of 10 worsening abdominal pain. His abdomen is slightly distended. He has diffuse abdominal tenderness to palpation. He has a white blood cell count of 19,000 which is worse than his previous admission. His CT scan shows worsening colitis and left descending colon, improved colitis and sigmoid colon. He also has a large stool burden in large colon. Patient is also hyponatremic and slightly hyperkalemic at 5.3. I did discuss this case with Dr. Wong and the hospitalist Dr. Gillette. Patient will be admitted to medicine for further management. (Brent ORDONEZ,Pietro) Departure Departure Time of Disposition: 2210 Disposition: STILL A PATIENT Condition: Stable Clinical Impression Primary Impression: Colitis Secondary Impressions: Hyperkalemia, Hyponatremia Referrals: Hicks ,Rudi Banuelos (PCP/Family) Departure Forms: Customer Survey General Discharge Information Admission Note Spoke With: Sami Gillette MD Documentation of Exam: Documentation of any treatments & extenuating circumstances including Concerns Regarding Discharge (functional status, medication knowledge or non-compliance, living conditions, etc.) that warrant an admission rather than observation: [ Patient failed outpatient treatment of C. difficile colitis, leukocytosis, possible ID consult, hyponatremia requiring IV fluids, repeat labs, electrolyte management, premature discharge medically unsafe] (Brent ORDONEZ,Pietro) PA/REMOTE CONTROL ASSEMBLER Co-Sign Statement Statement: ED Attending supervision documentation- [X] I saw and evaluated the patient. I have also reviewed all the pertinent lab results and diagnostic results. I agree with the findings and the plan of care as documented in the PA's/REMOTE CONTROL ASSEMBLER's documentation. [X] I have reviewed the ED Record and agree with the PA's/REMOTE CONTROL ASSEMBLER's documentation. [] Additions or exceptions (if any) to the PAs/REMOTE CONTROL ASSEMBLER's note and plan are summarized below: [Patient white blood cell count is elevated though his CAT scan looks slightly worse than prior. Patient is on Vanco currently. Patient will require admission for further evaluation and treatment.] (Marvin KELLY,Hilario Alvarado)
[2017-10-21 19:10] LABS: ABSOLUTE BASOPHIL COUNT 0.1 /CUMM (0.0-0.2); ABSOLUTE EOSINOPHIL COUNT 0.1 /CUMM (0.0-0.7); ABSOLUTE GRANULOCYTE CT 14.1 /CUMM (1.4-6.5); ABSOLUTE LYMPH COUNT 4.3 /CUMM (1.2-3.4); ABSOLUTE MONOCYTE COUNT 0.8 /CUMM (0.10-0.60); BASOPHIL % 0.5 % (0.0-2.0); EOSINOPHIL % 0.3 % (0-5); HEMATOCRIT 41.2 % (42-52); MEAN CORPUSCULAR HGB 31.3 PG (27.0-31.0); MEAN CORPUSCULAR HGB CONC 33.4 G/DL (33.0-37.0); MEAN CORPUSCULAR VOLUME 93.8 FL (80.0-94.0); MEAN PLATELET VOLUME 6.4 FL (7.4-10.4); PLATELET COUNT 182 /CUMM (130-400); RBC DISTRIBUTION WIDTH 14.3 % (11.5-14.5)
[2017-10-21 19:19] LABS: GRANULOCYTE % 72.9 % (42.2-75.2); WHITE BLOOD CELL COUNT 19.3 /CUMM (4.8-10.8)
--- NOTE | 2017-10-21 21:32 | CT SCAN REPORT ---
EXAMINATION: CT ABDOMEN AND PELVIS WITH CONTRAST CLINICAL INFORMATION: Abdominal pain. Recent history of C. difficile. No bowel movement 2 days. Distended. COMPARISON: 10/13/2017 TECHNIQUE: Multidetector volumetric imaging was performed of the abdomen and pelvis following IV administration of 95 mL of Optiray 320 intravenous contrast. Sagittal and coronal reformatted images were obtained on the technologist's workstation. DLP: 267.5 mGy-cm FINDINGS: LUNG BASES: Mild dependent atelectasis. Calcific atherosclerosis is present in the coronary arteries. LIVER, GALLBLADDER, AND BILIARY TREE: The liver is normal in size, shape, and attenuation. No focal hepatic lesion or biliary ductal dilatation is present. A small amount of heterogeneous dependent low-density material is present in the gallbladder, possibly small low-density stones or sludge. Gallbladder is otherwise normal in appearance. No wall thickening or fat stranding. PANCREAS: Atrophic. No ductal dilatation or focal abnormalities. SPLEEN: Unremarkable. ADRENAL GLANDS: Unremarkable. KIDNEYS AND URETERS: A few renal cysts are again noted, unchanged. The largest of these measures 5.3 cm and is exophytic at the inferior margin of the left kidney. Kidneys enhance symmetrically. No perinephric stranding. No hydronephrosis or nephrolithiasis. Ureters normal in course and caliber. BLADDER: Normal GASTROINTESTINAL TRACT: As seen on the prior study, there is wall thickening, mucosal hyperenhancement, and pericolonic fat stranding in the descending and sigmoid colon. The inflammation is improved at the sigmoid colon and more pronounced in the descending colon. Moderate to large volume of stool is present throughout the colon with the exception of the sigmoid colon. No evidence of perforation. No fluid collection or abscess. Fat stranding around the descending colon in the anterior pararenal fascia and lateroconal fascia has progressed. Incidental note is made of a diffusely one diverticula. No diverticulitis. ABDOMINAL WALL: Fat-containing left inguinal hernia is noted. No bowel involvement. LYMPH NODES: Normal. VASCULAR: Calcific atherosclerosis is present in the abdominal aorta and its major ostia. No aneurysmal dilatation. PELVIC VISCERA: Prostate gland is enlarged. Coarse central calcifications are present in the prostate. OSSEOUS STRUCTURES: There is moderate multilevel degenerative disc disease in the lumbar spine. A spinal stimulator lead is present in the overlying superficial soft tissues. No acute osseous abnormalities are identified. 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 IMPRESSION: 1. Colitis in the left hemicolon is worse in the descending colon and improved in the sigmoid colon as compared to 10/13/2017. 2. Moderate to large stool volume, primarily in the ascending, transverse, and proximal descending colon. 3. Large fat-containing left inguinal hernia.
--- NOTE | 2017-10-21 23:08 | History & Physical ---
Darryn Villanueva 10/21/17 9176: General Information and HPI MD Statement: I have seen and personally examined SAMI KING and documented this H& P. The patient is a 87 year old M who presented with a patient stated chief complaint of abdominal pain. 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 Reported brbpr x 1 episode 4-5 days ago, no diarrheal episodes. No lightheadedness, dizziness. Reported decreased po intake in the last few months, and more so now. Also reported to have worsening back pain for which he is on Soma qpm, oxycodone, and MS Contin. Non-smoker, nonalcoholic. Confirmed his pain meds with his family. Allergies/Medications Allergies: Coded Allergies: penicillin V (HIVES 11/27/16) metoclopramide (Severe, DIARRHEA 11/27/16) Compliance With Home Meds: GOOD Past History Travel History Traveled to [place] past 21 day No Medical History Neurological: torticollis EENT: cataracts Cardiovascular: hypertension, hyperlipidemia, IRBBB Respiratory: NONE Gastrointestinal: hiatal hernia, 09/2013- colonoscopy- stricture at 15cm bx negative + C.DIFF L femoral hernia Renal: L renal cyst Musculoskeletal: chronic back pain, disk herniation, degen joint disease, spinal stenosis Psychiatric: NONE Endocrine: NIDDM Blood Disorders: DVT, thrombocytopenia Cancer(s): prostate cancer (RT/hormonal [place]) BINGO ATTENDANT/Reproductive: NONE History of MRSA: No History of VRE: No History of CDIFF: Yes Surgical History Surgical History: appendectomy, cataract removal (06/2014: cat OU), hernia repair-inguinal, prostatectomy, 05/2006: neurostimulator; mult back surgeries ; Past Family/Social History Family History Relations & Conditions if any BROTHER (Pt unsure as to FHx, but denies FHx of GI Ca, GI disease, or inherited liver disease.). Relation not specified for: No pertinent family history Psychosocial History Who Do You Live With? spouse Services at Home: None Primary Language: Kuwaiti ETOH Use: denies use Illicit Drug Use: denies illicit drug use Living Will? no Power of Ammonia Print Operator/HCP? no Functional Ability ADLs Independent: dressing, eating, toileting, bathing. Ambulation: independent IADLs Independent: shopping, housework, finances, food prep, telephone, transportation. Needs Assist: medication admin. Review of Systems Review of Systems Constitutional: Reports: see HPI. Denies: chills, fever. EENTM: Denies: blurred vision. Cardiovascular: Denies: chest pain, orthopena, palpitations. Respiratory: Denies: cough, short of breath. GI: Reports: abdominal pain, nausea, bloody stool, changes in stool. Denies: melena , vomiting. Genitourinary: Reports: hesitation. Denies: dysuria, hematuria. Musculoskeletal: Reports: back pain. Denies: muscle pain. Skin: Denies: change in skin color, jaundice. Neurological/Psychological: Denies: anxiety. Hematologic/Endocrine: Denies: bruising. Exam & Diagnostic Data Last 24 Hrs of Vital Signs/I&O Vital Signs Date Time Temp Pulse Resp B/P B/P Pulse O2 O2 Flow FiO2 Mean Ox Delivery Rate 10/21 2149 97.9 87 18 154/73 92 Room Air 10/21 1956 99.0 92 18 157/86 94 Room Air 10/21 1818 96 10/21 1809 98.5 107 18 157/70 95 Room Air Room Air Physical Exam General Appearance Alert, Oriented X3, Cooperative, No Acute Distress Skin No Rashes, No Breakdown, No Significant Lesion Skin Temp/Moisture Exam: Warm/Dry Sepsis Skin Exam (color): Normal for Ethnicity, Cyanotic, Flushed HEENT Atraumatic, PERRLA, EOMI, Mucous Membr. moist/pink Neck Supple, No JVD, No thryomegaly, +2 Carotid Pulse wo Bruit Lymphatic Axillary nl, Cervical nl Cardiovascular Regular Rate, Normal S1, Normal S2, No Murmurs Lungs Clear to Auscultation, Normal Air Movement Abdomen Normal Bowel Sounds, Soft, No Hepatospenomegaly, No Masses, abdominal tenderness Neurological Normal Speech, Strength at 5/5 X4 Ext, Normal Tone, Sensation Intact, Cranial Nerves 3-12 NL, Reflexes 2+ Extremities No Clubbing, No Cyanosis, Normal Pulses, No Tenderness/Swelling, pedal edema 2+ Vascular Normal Pulses, Pulses Symmetrical Sepsis Peripheral Pulse Location: Dorsalis Pedis Sepsis Peripheral Pulse Exam: Normal Sepsis Cap Refill Exam: <2 Sec Body Front and Back (Adult) 1) pedal edema 2) spinal stimulator roma-umbilical abdominal tenderness Last 24 Hrs of Labs/Duy: Laboratory Tests 10/21/172143: Lactic Acid Cancelled 10/21/171903: Anion Gap 9, Estimated GFR > 60, BUN/Creatinine Ratio 13.3, Glucose 241 H, Lactic Acid 1.1, Calcium 8.9, Total Bilirubin 0.9, AST 38, ALT 22, Alkaline Phosphatase 42, Troponin I 0.02, Total Protein 6.9, Albumin 3.9, Globulin 3.0, Albumin/Globulin Ratio 1.3, Lipase 16 L, CBC w Diff NO MAN DIFF REQ, RBC 4.40 L, MCV 93.8, MCH 31.3 H, MCHC 33.4, RDW 14.3, MPV 6.4 L, Gran % 72.9, Lymphocytes % 22.2, Monocytes % 4.1, Eosinophils % 0.3, Basophils % 0.5, Absolute Granulocytes 14.1 H, Absolute Lymphocytes 4.3 H, Absolute Monocytes 0.8 H, Absolute Eosinophils 0.1, Absolute Basophils 0.1 10/21/171900: Urinalysis LIGHT H, Urine Color YEL, Urine Clarity CLEAR, Urine pH 6.5, Ur Specific [place] 1.015, Urine Protein 30 H, Urine Ketones 15 H, Urine Nitrite NEG, Urine Bilirubin NEG, Urine Urobilinogen 0.2, Ur Leukocyte Esterase NEG, Ur Microscopic SEDIMENT EXAMINED, Urine RBC 1-3, Ur Epithelial Cells RARE, Urine Bacteria RARE H, Urine Hemoglobin TRACE-INTACT H, Urine Glucose 500 H Assessment/Plan Assessment: Mr King is a 85 year old gentleman with of DVT not on any AC, type 2 DM, chronic hyponatremia, prostate cancer s/p RT+HT (2006?), hyperlipidemia, spinal stenosis chronic pain with 2 neurostimulator placements, chronic neck pain, 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 At the time of [id number] 98.5, pulse rate 107, respiration 18 , blood pressure 157/70, pulse ox 95% on room air. Pertinent lab findings- WBC of 19.3 (72.9% Granulocytes), hemoglobin 13.8, platelet count 182. Sodium 127(baseline 129 ? solute intake), potassium 5.3(slightly high), chloride 88(? solute intake) HCO3 30, AG 9 BUN 8, Sr Cr 0.6 Lactate 1.1 Liver chemistries- AST 38, ALT 22, AlkP 42 Trop 0.02. Lipase 16. Abdominal CT scan- 1. Colitis in the left hemicolon is worse in the descending colon and improved in the sigmoid colon as compared to 10/13/2017. 2. Moderate to large stool volume, primarily in the ascending, transverse,and proximal descending colon.3. Large fat-containing left inguinal hernia. Stool c diff tox- 10/13/17 postive. Problem list: 1. Colitis unclear etiology 2. h/o Recurrent C diff. 3. h/o chronic hyponatremia 4. h/o diabetes 5. h/o chronic back pain 6. Severe cdiff ( WBC > 15k) ? Etiology in this case of severe abdominal pain associated with tenderness with no guarding or rigidity is likely from colitis. Given his recent history of C. difficile toxin positive diarrhea+ colitis involving the sigmoid area, and in light of his new findings in descending colon likely suggest an inflammatory etiology or fecal induced colitis. It is unclear if he has any infectious etiology at this time, but given his C. difficile it should be treated as C. difficile induced colitis. No radiological signs of ileus, megacolon. He continues to be on opiates, which causes constipation and changes in stool transit, which need to be addressed to avoid any perforation. In regards to his C. difficile toxin diarrhea, he should be continued on vancomycin until he completes his course. If he has any diarrhea, it should be tested for C. difficile toxin. In the absence of severe granulocytes, that are the first to respond to an acute infection it makes me think, that this is likely reactive or a chronic infection. He also was found to have hyperkalemia, which should be re-checked in the am. No clear etiology, unless adrenal insufficiency is suspected in the setting of chronic opiate use that would explain his hyponatremia+hyperkalemia. Plan: -Observe the patient on general medicine service. -If he develops any diarrhea, please send a sample for C. difficile toxin test. -Monitor vitals closely. -P.o. vancomycin 1.5 mg every 6 to complete the course. -Serial abdominal examinations -If he develops any worsening abdominal pain, obtain abdominal x-ray. -C BC daily -In regards to hyponatremia, it could be due to low solute intake. Check urine lites, urine, serum was not. Do not overzealously correct sodium in his case. Not on any diuretics. -Check TSH, am cortisol. -Hold oral hypoglycemic drugs, start insulin sliding scale. Accu-Cheks. -In regards to his pain medications, continue Soma every night, oxycodone 10 mg every 6 as needed, MS Contin 30 mg twice daily. Please titrate down the next 24 hours. Pain management consult as an outpatient. -Surgical consult. -Please discuss with GI, about possible colonoscopy after confirming that the infection is resolved. CODE STATUS: Full code Diet-npo for now. Pain pathway-Tylenol, oxycodone, Soma. As Ranked By This Provider Problem List: 1. Leukocytosis 2. Hyperkalemia 3. Peripheral edema 4. Colitis Core Measures/Misc (01/01) Sepsis (View protocol) Sepsis Present: No If YES complete Sepsis Event Note If YES complete Sepsis Event Note Sami Gillette MD 10/22/17 0028: General Information and HPI MD Statement: I have seen and personally examined SAMI KING JR and documented this H& P. The patient is a 87 year old M who presented with a patient stated chief complaint of [abdominal pain]. Source of Information: patient Allergies/Medications Home Med list Aspirin (Ecotrin*) 81 MG TABLET. 1 TAB PO DAILY HEART/BLOOD (Reported) Carisoprodol (SOMA) 250 MG TABLET 1 TAB PO TID PAIN (Reported) Glimepiride 1 MG TABLET 1 TAB PO DAILY DM (Reported) Morphine Sulfate (Morphine Sulfate ER) 30 MG TABLET.ER 1 TAB PO BID PAIN ( Reported) Ondansetron HCl (Zofran) 4 MG TABLET 1 TAB PO Q6 PRN NAUSEA/VOMITING Oxycodone HCl 10 MG TABLET 1 TAB PO Q6H PRN PAIN (Reported) Saccharomyces Boulardii (Florastor) 250 MG CAPSULE 1 TAB PO BID DIARRHOEA Simvastatin (Simvastatin*) 20 MG TABLET 1 TAB PO QPM CHOLESTEROL (Reported) Vancomycin HCl 900 MCG/MG (NOT LESS THAN, SHELTER) POWDER 125 MG PO Q6H C DIFF TOTAL TEN DAY COURSE Past History Medical History EENT: cataracts Cardiovascular: hypertension, hyperlipidemia, NSTEMI, IRBBB Gastrointestinal: hiatal hernia, 09/2013- colonoscopy- stricture at 15cm bx negative + C.DIFF L femoral hernia Musculoskeletal: chronic back pain, spinal stenosis Endocrine: NIDDM Blood Disorders: DVT, thrombocytopenia History of CDIFF: Yes Surgical History Surgical History: appendectomy, cataract removal, hernia repair-inguinal, prostatectomy, 05/2006: neurostimulator; mult back surgeries 06/1999; Past Family/Social History Psychosocial History Smoking Status: Never Smoked ETOH Use: denies use Illicit Drug Use: denies illicit drug use Employment History Employment Retired Review of Systems Review of Systems Constitutional: Reports: see HPI. Exam & Diagnostic Data Last 24 Hrs of Vital Signs/I&O Vital Signs Date Time Temp Pulse Resp B/P B/P Pulse O2 O2 Flow FiO2 Mean Ox Delivery Rate 10/21 2359 98.8 93 18 153/76 93 Room Air 10/21 2150 97.9 87 18 154/73 92 Room Air 10/21 1956 99.0 92 18 157/86 94 Room Air 10/21 1818 96 10/21 1810 98.5 107 18 157/70 95 Room Air Room Air Intake & Output 10/22 0800 10/22 0000 10/21 1600 Intake Total 1000 Output Total Balance 1000 Intake, IV 1000 Patient 130 lb Weight Weight Reported by Patient Measurement Method Physical Exam General Appearance Alert, Oriented X3, Cooperative, No Acute Distress Skin No Rashes, No Breakdown HEENT Atraumatic, PERRLA, EOMI Neck Supple, No JVD Lymphatic Axillary nl, Cervical nl Cardiovascular Regular Rate, Normal S1, Normal S2, No Murmurs Lungs Clear to Auscultation, Normal Air Movement Abdomen Normal Bowel Sounds, Soft, No Hepatospenomegaly, abdominal tenderness Neurological Normal Speech Last 24 Hrs of Labs/Duy: Laboratory Tests 10/21/172143: Lactic Acid Cancelled 10/21/171903: Anion Gap 9, Estimated GFR > 60, BUN/Creatinine Ratio 13.3, Glucose 241 H, Serum Osmolality 277 L, Lactic Acid 1.1, Calcium 8.9, Total Bilirubin 0.9, AST 38, ALT 22, Alkaline Phosphatase 42, Troponin I 0.02, Total Protein 6.9, Albumin 3.9, Globulin 3.0, Albumin/Globulin Ratio 1.3, Lipase 16 L, CBC w Diff NO MAN DIFF REQ, RBC 4.40 L, MCV 93.8, MCH 31.3 H, MCHC 33.4, RDW 14.3, MPV 6.4 L, Gran % 72.9, Lymphocytes % 22.2, Monocytes % 4.1, Eosinophils % 0.3, Basophils % 0.5, Absolute Granulocytes 14.1 H, Absolute Lymphocytes 4.3 H, Absolute Monocytes 0.8 H, Absolute Eosinophils 0.1, Absolute Basophils 0.1 10/21/171900: Urinalysis LIGHT H, Urine Color YEL, Urine Clarity CLEAR, Urine pH 6.5, Ur Specific [place] 1.015, Urine Protein 30 H, Urine Ketones 15 H, Urine Nitrite NEG, Urine Bilirubin NEG, Urine Urobilinogen 0.2, Ur Leukocyte Esterase NEG, Ur Microscopic SEDIMENT EXAMINED, Urine RBC 1-3, Ur Epithelial Cells RARE, Urine Bacteria RARE H, Urine Hemoglobin TRACE-INTACT H, Urine Glucose 500 H 10/21/171900: Urine Osmolality 294 L, Ur Random Creatinine 50.9, Ur Random Sodium 35, Ur Random Potassium 30.6, Fraction Sodium Excret < 1.0 Core Measures/Misc (01/01) Acute Coronary Syndrome ACS Diagnosis: No Congestive Heart Failure Congestive Heart Failure Diagnosis No Cerebrovascular Accident CVA/TIA Diagnosis: No VTE (View Protocol) VTE Risk Factors Acute Medical Illness No Mechanical VTE Prophylaxis d/t DVT (suspected/known) No VTE Pharm Prophylaxis d/t LowRisk-No Interven Req'd Sepsis (View protocol) Sepsis Present: No If YES complete Sepsis Event Note If YES complete Sepsis Event Note Attending MD Review Statement Attending Statement Attending MD Statement: examined this patient, discuss w/resident/PA/OPHTHALMIC MEDICAL TECHNICIAN, agreed w/resident/PA/OPHTHALMIC MEDICAL TECHNICIAN, amended to note Attending Assessment/Plan: This patient is an 85 year wm with a significant past medical history for type 2 DM, chronic hyponatremia, prostate cancer s/p RT+HT, spinal stenosis w/ chronic neck pain, recurrent C. difficile infections( x 3 times, tx w/ tapering dose of vanc), last c diff tox positive diarrhea+colitis( admitted to 10/13-10/16 to complete a course of po vanc x 10d) who presents with chief complaint of abdominal pain, no nausea, vomiting or diarrhea. Complains of worsening back pain for which he is on Soma qpm, oxycodone, and MS Contin. While in the emergency department the patient was found to have a white blood cell count of 19.[address] scan demonstrated colitis in the left hemicolon worse in the descending colon and improved in the sigmoid colon. Moderate to large stool volume primarily in the ascending transverse and proximal descending colon. Currently treating for C. difficile and watch closely for signs of an acute abdomen and will try to minimize narcotic pain control.
[2017-10-22 01:34] VITALS: BP 138/76
[2017-10-22 04:00] VITALS: BP 164/90
[2017-10-22 06:32] VITALS: BP 132/76
[2017-10-22 09:16] LABS: ABSOLUTE BASOPHIL COUNT 0.1 /CUMM (0.0-0.2); ABSOLUTE EOSINOPHIL COUNT 0.1 /CUMM (0.0-0.7); ABSOLUTE GRANULOCYTE CT 10.3 /CUMM (1.4-6.5); ABSOLUTE LYMPH COUNT 3.5 /CUMM (1.2-3.4); ABSOLUTE MONOCYTE COUNT 0.7 /CUMM (0.10-0.60); BASOPHIL % 0.5 % (0.0-2.0); EOSINOPHIL % 0.4 % (0-5); GRANULOCYTE % 70.3 % (42.2-75.2); HEMATOCRIT 37.3 % (42-52); MEAN CORPUSCULAR HGB 31.1 PG (27.0-31.0); MEAN CORPUSCULAR HGB CONC 33.1 G/DL (33.0-37.0); MEAN CORPUSCULAR VOLUME 94.2 FL (80.0-94.0); MEAN PLATELET VOLUME 7.2 FL (7.4-10.4); PLATELET COUNT 134 /CUMM (130-400); RBC DISTRIBUTION WIDTH 14.2 % (11.5-14.5); RED BLOOD CELL CT 3.97 /CUMM (4.70-6.10); WHITE BLOOD CELL COUNT 14.6 /CUMM (4.8-10.8)
--- NOTE | 2017-10-22 12:01 | PN- Housestaff ---
Mara Guido 10/22/17 1201: Subjective Follow-up For: Colitis Complaints: no complaints Subjective: Patient seen and examined at bedside. No acute events overnight. Afebrile. Denies have episodes of diarrhea. Denies fever, night sweats or chills. Review of Systems Constitutional: Denies: see HPI. Cardiovascular: Denies: chest pain, palpitations. Respiratory: Denies: cough, short of breath. Gastrointestinal: Reports: abdominal pain. Denies: constipation, diarrhea, bloody stool. Objective Last 24 Hrs of Vital Signs/I&O Vital Signs Date Time Temp Pulse Resp B/P B/P Pulse O2 O2 Flow FiO2 Mean Ox Delivery Rate 10/22 1600 Room Air 10/22 1404 98.0 100 20 100/62 96 Room Air / 0632 98.7 74 18 132/76 93 Room Air / 0400 99.0 85 20 164/90 94 Room Air 10/22 0145 92 Room Air 10/22 0134 99.2 80 20 138/76 92 Room Air 10/21 2359 98.8 93 18 153/76 93 Room Air 10/21 2150 97.9 87 18 154/73 92 Room Air 10/21 1956 99.0 92 18 157/86 94 Room Air Intake & Output 10/22 1600 /08 0800 07/08 0000 Intake Total 754 892 3603 Output Total 500 Balance 200 -400 1000 Intake, IV 114 899 4462 Number 2 1 Bowel Movements Output, Urine 500 Patient 138 lb 130 lb Weight Weight Bed scale Reported by Patient Measurement Method Physical Exam General Appearance: Alert, Oriented X3, Cooperative Skin: No Rashes HEENT: Atraumatic, PERRLA, EOMI Neck: Supple, No LAD Cardiovascular: Regular Rate, Normal S1, Normal S2 Lungs: Clear to Auscultation, Normal Air Movement Abdomen: Normal Bowel Sounds, Soft, Tender to palpation in LLQ Extremities: No Cyanosis, No Edema, Normal Pulses Vascular: Normal Pulses, Pulses Symmetrical Assessment/Plan Assessment: Pt. is an 85yoM with a PMHx of DVT, DMII, Chronic Hyponatremia, recurrent C. diff infections, last admitted to [facility] on 10/13-10/16 for diarrhea and colitis with a positive C. diff toxin (completed PO vancomycin x 10d), presents with Abdominal pain and distension. Problem List: 1. Colitis 2. History of Recurrent C. diff #Colitis of unclear etiology History of recurrent C. diff infections. Most reccent on 10/13/17. CT on (10/21/17) positive for colitis in left hemicolon. C. diff stool toxin is negative. Plan: - Keep NPO, D5- Half NS @ 75mL/hour - Vancomycin 125mg PO QID Problem List: 1. Colitis Pain Ratin Pain Location: LLQ Pain Goal: Remain pain free Pain Plan: Tylenol, Oxicodone Tomorrow's Labs & Rationales: CBC, BEP Melania KELLY,Jesús 10/22/17 1319: Attending MD Review Statement Attending Statement Attending MD Statement: examined this patient, discuss w/resident/PA/TRAINING AND DEVELOPMENT COORDINATOR, agreed w/resident/PA/TRAINING AND DEVELOPMENT COORDINATOR, reviewed EMR data (avail), discussed with nursing, amended to note Attending Assessment/Plan: Patient seen and examined right comfortably in bed and not in acute distress. Denies abdominal discomfort. Denies any diarrhea currently. Nursing staff reports he had a loose bowel movement earlier on. He is afebrile hemodynamically stable. Laboratory data shows his leukocytosis to be improving from 19,000-14,000. Creatinine is within normal limits. CT abdomen on admission showed no evidence of ileus or megacolon. On examination abdomen is nondistended, soft mild left-sided tenderness no rebound or guarding. Pain stimulator is palpable. Plan: -Continue treatment with vancomycin 125 mg orally 4 times a day for this first recurrence of disease. -He will likely require prolonged therapy. -Follow-up Clostridium difficile testing. -Hydrate with D5 half NS at 75 cc an hour. -Keep patient on n.p.o. sliding scale coverage.
[2017-10-22 14:04] VITALS: BP 100/62
[2017-10-22 22:19] VITALS: BP 116/70
[2017-10-23 06:36] VITALS: BP 118/66
[2017-10-23 10:00] LABS: ABSOLUTE BASOPHIL COUNT 0.1 /CUMM (0.0-0.2); ABSOLUTE EOSINOPHIL COUNT 0.1 /CUMM (0.0-0.7); ABSOLUTE GRANULOCYTE CT 4.7 /CUMM (1.4-6.5); ABSOLUTE LYMPH COUNT 3.2 /CUMM (1.2-3.4); ABSOLUTE MONOCYTE COUNT 0.6 /CUMM (0.10-0.60); BASOPHIL % 0.6 % (0.0-2.0); EOSINOPHIL % 0.8 % (0-5); GRANULOCYTE % 54.4 % (42.2-75.2); HEMATOCRIT 35.2 % (42-52); MEAN CORPUSCULAR HGB 31.1 PG (27.0-31.0); MEAN CORPUSCULAR HGB CONC 33.8 G/DL (33.0-37.0); MEAN CORPUSCULAR VOLUME 92.2 FL (80.0-94.0); MEAN PLATELET VOLUME 6.8 FL (7.4-10.4); PLATELET COUNT 136 /CUMM (130-400); RBC DISTRIBUTION WIDTH 14.3 % (11.5-14.5); RED BLOOD CELL CT 3.81 /CUMM (4.70-6.10); WHITE BLOOD CELL COUNT 8.6 /CUMM (4.8-10.8)
[2017-10-23 14:46] VITALS: BP 110/70
--- NOTE | 2017-10-23 15:15 | PN- Housestaff ---
See Addendum Subjective Follow-up For: colitis Subjective: Patient seen and examined at bedside. No acute events overnight. Afebrile, patient states pain is better with some, pain has improved with defecation. Patient had 3 bowel movements yesterday, 193 normal stool for patient. Patient is asking why he cannot eat, says he feels like eating. Review of Systems Constitutional: Denies: chills, diaphoresis, fever. Cardiovascular: Denies: chest pain, palpitations. Respiratory: Denies: cough, hemoptysis. Gastrointestinal: Reports: abdominal pain. Denies: diarrhea, melena, bloody stool. Objective Last 24 Hrs of Vital Signs/I&O Vital Signs Date Time Temp Pulse Resp B/P B/P Pulse O2 O2 Flow FiO2 Mean Ox Delivery Rate 10/23 1446 97.7 86 22 110/70 98 10/23 0636 98.2 101 18 118/66 96 Room Air 10/22 2219 97.5 95 18 116/70 95 Room Air 10/22 1600 Room Air Intake & Output 10/23 1600 10/23 0800 10/23 0000 Intake Total 450 555 Output Total 200 125 Balance 450 -200 430 Intake, IV 150 525 Intake, Oral 300 30 Number 1 3 3 Bowel Movements Output, Urine 200 125 Physical Exam General Appearance: Alert, Oriented X3, Cooperative Skin: No Rashes HEENT: Atraumatic, EOMI Neck: Supple, No LAD Cardiovascular: Regular Rate, Normal S1, Normal S2 Lungs: Clear to Auscultation, Normal Air Movement Abdomen: Normal Bowel Sounds, Soft, LLQ tender to palpation Assessment/Plan Assessment: Pt. is an 85yoM with a PMHx of DVT, DMII, Chronic Hyponatremia, recurrent C. diff infections, last admitted to on 10/13-10/16 for diarrhea and colitis with a positive C. diff toxin (completed PO vancomycin x 10d), presents with Abdominal pain and distension. Problem List: 1. Colitis 2. History of Recurrent C. diff #Colitis of unclear etiology History of recurrent C. diff infections. Most reccent on 10/13/17. CT on (10/21/17) positive for colitis in left hemicolon. C. diff stool toxin is negative. Plan: - advance to clear liquid diet - C. diff PCR - Vancomycin 125mg PO QID Problem List: 1. Colitis Pain Ratin Pain Location: LLQ Pain Goal: Remain pain free Pain Plan: none Tomorrow's Labs & Rationales: NHNA ANDREA
[2017-10-23 22:36] VITALS: BP 116/70
[2017-10-24 06:20] VITALS: BP 132/70
[2017-10-24 08:21] LABS: C.DIFFICILE TOXIN B QL PCR NOT DETECTED (NOT DETECTED)
--- NOTE | 2017-10-24 08:54 | PN- Housestaff ---
See Addendum Subjective Follow-up For: Colitis Subjective: Patient was seen and examined at bedside. No acute events overnight. Afebrile. Patient is having formed stool BM, denies abdominal pain, diarrhea. Patient is tolerating his regular diet. Has no c/o. Review of Systems Constitutional: Denies: chills, diaphoresis, fever. Cardiovascular: Denies: chest pain. Respiratory: Denies: cough, hemoptysis. Gastrointestinal: Denies: abdominal pain, constipation, diarrhea, changes in stool. Objective Last 24 Hrs of Vital Signs/I&O Vital Signs Date Time Temp Pulse Resp B/P B/P Pulse O2 O2 Flow FiO2 Mean Ox Delivery Rate 10/24 0620 98.2 76 18 132/70 95 Room Air 10/23 2236 98.2 89 12 116/70 96 Room Air 10/23 1446 97.7 86 22 110/70 98 Intake & Output 10/24 1600 / 0800 07/ 0000 Intake Total 360 480 Output Total Balance 360 480 Intake, Oral 360 480 Number 2 Bowel Movements Physical Exam General Appearance: Alert, Oriented X3, Cooperative Skin: No Rashes HEENT: Atraumatic, EOMI Neck: Supple, No LAD Cardiovascular: Regular Rate, Normal S1, Normal S2 Lungs: Clear to Auscultation, Normal Air Movement Abdomen: Normal Bowel Sounds, Soft, No Tenderness Extremities: No Cyanosis, No Edema, Normal Pulses Assessment/Plan Assessment: Assessment: Pt. is an 85yoM with a PMHx of DVT, DMII, Chronic Hyponatremia, recurrent C. diff infections, last admitted to [facility] on 10[facility]13-10/16 for diarrhea and colitis with a positive C. diff toxin (completed PO vancomycin x 10d), presents with Abdominal pain and distension. Problem List: 1. Colitis 2. History of Recurrent C. diff #Colitis of unclear etiology History of recurrent C. diff infections. Most reccent on 10/13/17. CT on (10/21/17) positive for colitis in left hemicolon. C. diff stool toxin is negative. Plan: - regular diet - C. diff PCR negative - will d/c Vancomycin 125mg PO QID Will discharge home today Problem List: 1. Colitis Pain Ratin Pain Location: n/a Pain Goal: Remain pain free Pain Plan: none Tomorrow's Labs & Rationales: none
--- NOTE | 2017-10-24 09:43 | Patient Discharge Instructions ---
Discharge Instructions General Discharge Information You were seen/treated for: Colitis Watch for these problems: Fever, chest pain, shortness of breath. Special Instructions: Please take all medications as directed. Please follow up with primary care. Diet Continue normal diet: Yes Activity Full Activity/No Limits: Yes Acute Coronary Syndrome Inclusion Criteria At DC or during hospital stay patient has or had the following: ACS DIAGNOSIS No Discharge Core Measures Meds if any: Prescribed or Continued at Discharge Meds if any: NOT Prescribed or Continued at Discharge Congestive Heart Failure Inclusion Criteria At DC or during hospital stay patient has or had the following: CHF DIAGNOSIS No Discharge Core Measures Meds if any: Prescribed or Continued at Discharge Meds if any: NOT Prescribed or Continued at Discharge Cerebrovascular accident Inclusion Criteria At DC or during hospital stay patient has or had the following: CVA/TIA Diagnosis No Discharge Core Measures Meds if any: Prescribed or Continued at Discharge Meds if any: NOT Prescribed or Continued at Discharge Venous thromboembolism Inclusion Criteria VTE Diagnosis No VTE Type NONE VTE Confirmed by (Test) NONE Discharge Core Measures - Per Current guidelines, there needs to be overlap - treatment for the first 5 days of Warfarin therapy. - If discharged on Warfarin prior to 5 days of - overlap therapy, the patient will need to be - assessed for post discharge needs including - *Post discharge parental anticoagulation - *Warfarin and/or parental anticoagulation education - *Follow up date to check INR post discharge At least 5 days overlap therapy as Inpatient No Meds if any: Prescribed or Continued at Discharge Note: Overlap Therapy is Warfarin and Anticoagulant Meds if any: NOT Prescribed or Continued at Discharge
--- NOTE | 2017-10-24 16:14 | Discharge Summary ---
Visit Information Visit Dates Admission Date: 10/21/17 Discharge Date: 10/24/17 Hospital Course Course Attending Physician: Kiet Gillette MD Primary Care Physician: Rudi Hicks MD Allergies: Coded Allergies: penicillin V (HIVES 11/27/16) metoclopramide (Severe, DIARRHEA 11/27/16) Discharge Instructions Medications at Discharge Discharge Medications: Stop taking the following medications: Vancomycin HCl (Vancomycin HCl) 900 MCG/MG (NOT LESS THAN, SENIOR CARE) POWDER ORAL Q6H Qty = 26 Continue taking these medications: Aspirin (Ecotrin*) 81 MG TABLET.DR 1 Tablet ORAL DAILY Comments: Last Taken: 10/24/17 Time: 8:00 AM Simvastatin (Simvastatin*) 20 MG TABLET 1 Tablet ORAL Every night Qty = 30 Comments: NOT GIVEN IN HOSPITAL Glimepiride (Glimepiride) 1 MG TABLET 1 Tablet ORAL DAILY Qty = 30 Comments: NOT GIVEN IN HOSPITAL Saccharomyces Boulardii (Florastor) 250 MG CAPSULE 1 Tablet ORAL TWICE DAILY Qty = 20 Comments: NOT GIVEN IN HOSPITAL Morphine Sulfate (Morphine Sulfate ER) 30 MG TABLET.ER 1 Tablet ORAL TWICE DAILY Comments: NOT TAKEN IN HOSPITAL Ondansetron HCl (Zofran) 4 MG TABLET 1 Tablet ORAL EVERY SIX HOURS as needed for NAUSEA/VOMITING Qty = 15 Comments: NOT TAKEN IN HOSPITAL Oxycodone HCl (Oxycodone HCl) 10 MG TABLET 1 Tablet ORAL Q6H as needed for PAIN Qty = 30 Comments: Last Taken: 10/24/17 Time: 08:00 AM Carisoprodol (SOMA) 250 MG TABLET 1 Tablet ORAL THREE TIMES DAILY Qty = 90 Comments: NOT TAKEN
== END 2017-10-24 11:46 | DRG 372 ==
LOC: ERH 18:06 → ERHI 22:23 → 2NA 22:23 → EDBEDREQ 23:08 → ENRESERV 10-22 00:12 → 2NA 10-22 01:32 → ENPENDDIS 10-24 10:12 → 2NA 10-24 11:46
PROVIDERS: Hospitalist; Internal Medicine Endocrinology, Diabetes & Metabolism; Internal Medicine Infectious Disease; Physician Assistant
DX: A04.71 Enterocolitis due to Clostridium difficile, recurrent (principal); E87.1 Hypo-osmolality and hyponatremia; M43.6 Torticollis; I10 Essential (primary) hypertension; E78.5 Hyperlipidemia, unspecified; E87.5 Hyperkalemia; Z85.46 Personal history of malignant neoplasm of prostate; Z96.89 Presence of other specified functional implants; G89.29 Other chronic pain; M54.9 Dorsalgia, unspecified; E11.9 Type 2 diabetes mellitus without complications; Z79.84 Long term (current) use of oral hypoglycemic drugs; D72.829 Elevated white blood cell count, unspecified; Z86.718 Personal history of other venous thrombosis and embolism
CPT/HCPCS: 2NAP; 84133; 84300; 87493; ERO; 36592; 74177; 81001; 82436; 82570; 96361; 96374; J0131; J1644; J1815; J2405; J7042